=== PATIENT | female | born 1945 | race Caucasian/White ===

== ENCOUNTER 2017-12-18 13:27 | Emergency (ER) | payer MEDICARE ==
[~2017-12-18] VITALS: Ht 165.1 cm; Wt 72.6 kg
[2017-12-18 14:48] VITALS: BP 147/90
== END 2017-12-18 14:42 | disposition home or self-care (01) ==
LOC: ER 13:27
DX: T63.441A Toxic effect of venom of bees, accidental (unintentional), initial encounter (principal); E78.5 Hyperlipidemia, unspecified
CPT/HCPCS: 99282

== ENCOUNTER 2019-12-18 14:18 | Emergency (ER) | payer MEDICARE ==
[~2019-12-18] VITALS: Ht 165.1 cm; Wt 72.6 kg
--- OUTSIDE RECORDS SUMMARY | 2019-12-18 14:21 | XMS REPORT ---
Author Author [facility] t Organization [facility] Address [address] [place] [address] Phone Unavailable Care Team Providers Care Wood Floor Layer Name Role Phone NO, PCP PCP Unavailable Harry Sanchez Attphys Bharathi Cheung Attphys Bharathi Cheung Admphys Payers Payer Name Policy Type Policy Number Effective Date Expiration Date Gerald gilman Kelsey Care Medicare Advantage [id number] [facility] Problems Condition Name Condition Details Condition Category Status Onset Date Resolution Date Last Treatment Date Treating Clinician Comments Source WEAKNESS WEAK NESS Active 12/23/2017 [facility] Diagnosis Active 2017-12-23 00:00:00 2017-12-23 14:53:00 [facility] ANEMIA REQUIRING TRANSFUSION A NEMIA REQUIRING TRANSFUSION Active 04/10/2014 [facility] Diagnosis Active 04-10 00:00:00 2014-04-13 11:18:00 [facility] ABNORMAL LABS ABNO RMAL LABS Active 04/10/2014 [facility] Diagnosis Active 2014-04-10 00:00:00 2014-04-10 11:50:00 [facility] Hypertensive disorder, systemic arterial (disorder) Hypertensive disorder, systemic arterial (disorder) Active Problem 12/26/2017 patient states she does not have high blood pressure. [facility] Problem Active 2017-12-26 02:51:57 [facility] Malignant neoplasm of skin (disorder) Malignant neoplasm of skin (disorder) Resolved Problem 12/26/2017 [facility] Problem Resolved 2017-12-26 02:51:57 [facility] ANEMIA NOS ANEM IA NOS Active [facility] Diagnosis Active 2014-04-13 11:18:00 [facility] Urinary tract infection, site not specified Urinary tract infection, site not specified 12/23/2017 12/26/2017 [facility] Problem 2017-12-23 05:00:00 2017-12-26 02:51:57 2017-12-26 02:51:57 [facility] Orthostatic hypotension Orth ostatic hypotension 12/23/2017 12/26/2017 [facility] Problem 2017-12-23 05:00:00 2017 02:51:57 2017-12-26 02:51:57 [facility] Allergies, Adverse Reactions, Alerts Allergy Name Allergy Type Status Severity Reaction(s) Onset Date Inacti ve Date Treating Clinician Comments Source [facility] Augmentin Augmentin Active Benjamin rial [facility] Social History Smoking Status Start Date Stop Date Source Social History [facility] Medications Ordered Medication Name Filled Medication Name Start Date Stop Da te Current Medication? Ordering Clinician Indication Dosage Frequency Signature (SIG) Comments Components Source ciprofloxacin 500 mg oral tablet 2017-12-24 01:02:00 Yes 500 mg = 1 tab, PO, Q12H, X 7 day, # 14 tab, 0 Refill(s) [facility] Ciprofloxacin 2017-12-23 22:30:00 No 400 mg, Route: IVPB, ONCE, Dosing Weight 75, kg, Priority: STAT, Start date: 12/23/17 17:30:00 CDT, Stop date: 12/23/17 17:30:00 CDT, ABX Indication: Urinary Tract Infection [facility] Sodium Chloride 0.9% (Bolus) IV 2017-12-23 22:24:00 No 1,000 mL, 1,000 ml/hr, Infuse Over: 1 hr, Route: IV, 1,000, Drug form: INJ, ONCE, Priority: STAT, Dosing Weight 75 kg, Start date: 12/23/17 17:24:00 CDT, Stop date: 12/23/17 17:24:00 CDT [facility] Sodium Chloride 0.9% (Bolus) IV 2017-12-23 21:23:00 No 500 mL, 500 ml/hr, Infuse Over: 1 hr, Route: IV, ONCE, Priority: STAT, Dosing Weight 75 kg, Start date: 12/23/17 16:23:00 CDT, Stop date: 12/23/17 16:23:00 CDT [facility] pantoprazole 2014-04-12 22:00:00 No Notes: Tablet should not be chewed or crushed. (Same as: Protonix) [facility] Sucralfate 100 MG/ML Oral Suspension [Carafate] 2014-04-12 21:30 :00 No Notes: Enteral feeds may int erfere with the absorption of this medication. Shake well. Take 1 hr before or 2 hrs after antacids, dairy pdt, minerals & meals. (Same As: Carafate) [facility] Folic Acid 1 MG Oral Tablet 2014-04-12 21:20:00 Yes 1 mg = 1 tab, PO, Daily, # 30 tab, 0 Refill(s) [facility] ascorbic acid 500 mg oral tablet 2014-04-12 21:20:00 Yes 500 mg = 1 tab, PO, Daily, # 30 tab, 0 Refill(s) [facility] ferrous sulfate 325 mg oral enteric coated tablet 2014-04-12 21:20:00 Yes 325 mg = 1 tab, PO, BID, # 60 tab, 0 Refill(s) [facility] pyridoxine 100 mg oral tablet 2014-04-12 21:20:00 Yes 100 mg = 1 tab, PO, Daily, # 100 tab, 0 Refill(s) [facility] pantoprazole 40 mg oral granule 2014-04-12 18:24:00 Yes = 1 Pack, PO, BID, # 60 ea, 3 Refill(s) [facility] Sucralfate 100 MG/ML Oral Suspension 2014-04-12 18:24:00 Ye s 1 gm = 10 ml, PO, Before Meals & Bedtime, # 1200 mL, 0 Refill(s) [facility] Flumazenil 2014-04-12 18:23:00 No Notes: (S alexandr as: Romazicon) [facility] Naloxone 2014-04-12 18:23:00 No Notes: Same as Narcan [facility] Sodium Chloride 0.154 MEQ/ML Injectable Solution 2014-04-12 17:3 7:00 No 1,000 mL, Rate: 25 ml/hr, In fuse over: 40 hr, Route: IV, Dosing Weight 75 kg, Total Volume: 1,000, Start date: 04/12/14 12:37:00, Duration: 30 day, Stop date: 05/12/14 12:36:00 [facility] Vitamin C 2014-04-12 14:00:00 No Notes: (Sa me as: Vitamin C) [facility] Vitamin B12 2014-04-12 14:00:00 No Notes: (Same As: Vitamin B12) [facility] Riboflavin 2014-04-12 14:00:00 No Notes: (S alexandr as: Vitamin B2) [facility] Folic Acid 2014-04-12 14:00:00 No Notes: (S alexandr as: Folvite) [facility] Vitamin B6 2014-04-12 14:00:00 No Notes: (S alexandr as: Vitamin B6) [facility] Prinivil 2014-04-12 14:00:00 No Not es: (Same as: Prinivil, Zestril) [facility] Hydrochlorothiazide 12.5 MG / Lisinopril 10 MG Oral Tablet 2014-04-12 14:00:00 No 1 tab, Rou te: PO, Drug Form: TAB, Dosing Weight 75, kg, Daily, Start date: 04/12/14 9:00:00, Duration: 30 day, Stop date: 05/11/14 9:00:00 [facility] Venofer 2014-04-12 14:00:00 No Notes: Each 5ml contains 100mg elemental iron. Mix with NS (Same as:Venofer) Administer IV only. [facility] Microzide 2014-04-12 14:00:00 No Notes: (Same as: Microzide) With food. [facility] Bisacodyl 2014-04-12 00:02:00 No Notes: (Same As: Dulcolax, Correctol) (Do Not Crush) "Do Not Crush" [facility] Golytely 2014-04-12 00:01:00 No Notes: (polyethylene glycol electrolyte solution 4 Liter bottle) (Same as: Melecio Fernando) [facility] Sodium Chloride 0.154 MEQ/ML Injectable Solution 2014-04-11 14:1 6:00 No 1,000 mL, Rate: 100 ml/hr, I nfuse over: 10 hr, Route: IV, Dosing Weight 75 kg, Total Volume: 1,000, Start date: 04/11/14 9:16:00, Duration: 30 day, Stop date: 05/11/14 9:15:00 [facility] Influenza Virus Vaccine, Inactivated A-B ibksant-37-5574 (H3N2)-like virus (Z-Gdzsvfq-212-2007 [facility] [place] [place] X-175C) strain / Influenza Virus Vaccine, Inactivated G-Tqiezzto-12-2007, IVR-148 (H1N1) strain / Influenza Virus Vaccine, Inactivated, W-Lgaptth-4-2006-lik 2014-04-11 14:00:00 No Notes: (Same as: Fluzone Quadrivalent) [facility] NS 250 mL 2014-04-11 01:42:00 No 250 mL, Rate: 30 ml/hr, Infuse over: 8.3 hr, Route: IV, Dosing Weight 75 kg, Total Volume: 250, Start date: 04/10/14 20:42:00, Duration: 30 day, Stop date: 05/10/14 20:41:00 [facility] Hydrochlorothiazide 12.5 MG / Lisinopril 10 MG Oral Tablet 2014-04-10 21:28:00 Yes 1 tab, PO, Daily, # 30 tab, 0 R efill(s) [facility] lisinopril 10 mg oral tablet 2014-04-10 20:10:00 No 10 mg = 1 tab, PO, Daily, # 30 tab, 0 Refill(s) [facility] Vital Signs Vital Name Observation Time Observation Value Comments Source Heart Rate 2017-12-24 00:57:00 [facility] Respitory Rate 2017-12-24 00:57:00 [facility] Temperature Oral (F) 2017-12-24 00:57:00 98.0 F [facility] Systolic (mm Hg) 2017-12-24 00:57:00 [facility] Diastolic (mm Hg) 2017-12-24 00:57:00 [facility] Respitory Rate 2017-12-23 22:50:00 [facility] Heart Rate 2017-12-23 22:50:00 [facility] Systolic (mm Hg) 2017-12-23 22:50:00 [facility] Diastolic (mm Hg) 2017-12-23 22:50:00 [facility] Temperature Oral (F) 2017-12-23 19:21:00 98.0 F [facility] Heart Rate 2017-12-23 19:21:00 [facility] Respitory Rate 2017-12-23 19:21:00 [facility] Systolic (mm Hg) 2017-12-23 19:21:00 [facility] Diastolic (mm Hg) 2017-12-23 19:21:00 [facility] Diastolic (mm Hg) 2014-04-12 21:30:00 [facility] Systolic (mm Hg) 2014-04-12 21:30:00 [facility] Heart Rate 2014-04-12 21:30:00 [facility] Respitory Rate 2014-04-12 21:30:00 [facility] Systolic (mm Hg) 2014-04-12 19:00:00 [facility] Diastolic (mm Hg) 2014-04-12 19:00:00 [facility] Respitory Rate 2014-04-12 19:00:00 [facility] Diastolic (mm Hg) 2014-04-12 18:45:00 [facility] Systolic (mm Hg) 2014-04-12 18:45:00 [facility] Respitory Rate 2014-04-12 18:45:00 [facility] Temperature Oral (F) 2014-04-12 17:29:00 97.9 F [facility] Heart Rate 2014-04-12 17:29:00 [facility] Temperature Oral (F) 2014-04-12 16:59:00 98.4 F [facility] Heart Rate 2014-04-12 16:59:00 [facility] Temperature Oral (F) 2014-04-12 12:14:00 98.2 F [facility] Weight 2014-04-10 20:46:00 [facility] Height 2014-04-10 20:46:00 162.56 cm [facility] BMI Calculated 2014-04-10 20:46:00 [facility] Weight 2014-04-10 16:09:00 [facility] BMI Calculated 2014-04-10 16:09:00 [facility] Height 2014-04-10 16:09:00 162.56 cm [facility] Procedures Procedure Date / Time Performed Performing Clinician Sourc e Hysterectomy [facility] ORIF - Open reduction and internal fixation of fracture [facility] Tonsillectomy [facility] Encounters Start Date/Time End Date/Time Encounter Type Admission Type [facility] Facility Care Department Encounter ID Source 2017-12-23 19:15:00 2017-12-24 01:20:00 Emergency [facility] [id number] [facility] 2017-12-23 14:15:00 2017-12-23 20:20:00 Outpatient Michael Giang [facility] [id number] 2017-12-18 13:27:00 2017-12-18 14:42:[address] [id number] 2014-04-10 16:09:00 2014-04-12 22:00:00 Inpatient RO[facility]Chay [facility] [id number] [facility] 2014-04-10 11:09:00 2014-04-12 17:00:00 Outpatient Steven Cheung [facility] [id number] Results Test Description Test Time Test Comments Results Result Comments Source URINE AND STOOL 2017-12-23 21:50:00 6 [facility] URINE AND STOOL 2017-12-23 21:50:00 >182 [facility] URINE AND STOOL 2017-12-23 21:50:00 9 [facility] URINE AND STOOL 2017-12-23 21:50:00 Negative (12/23/17 4:50 PM) [facility] URINE AND STOOL 2017-12-23 21:50:00 Large *ABN*(12/23/17 4:5 0 PM) [facility] URINE AND STOOL 2017-12-23 21:50:00 Negative (12/23/17 4:50 PM) [facility] URINE AND STOOL 2017-12-23 21:50:00 Negative *NA*(12/23/17 4 :50 PM) [facility] URINE AND STOOL 2017-12-23 21:50:00 Test Item UA pH (test code = UA pH) 5.0 1 5.0-8.0 [facility] AND [id number] 21:50:00* Test Item Value Reference Range Interpretation Comments UA Spec Grav (test code = UA Spec Grav) 1.015 1 [facility] DITWQ3212-14-29 21:50:00Yellow *NA*(12/23/17 4:50 PM)[facility] RQBCB7024-14-48 21:50:00Marked *ABN*(12/23/17 4:50 PM) [facility] DACVGGR8576-86-73 21:00:0019 [facility] ENZYMES 2017-12-23 20:51:00<1.0MH [facility] SXIJGZS5997-15-60 20:51:00<0.02MH [facility] BVXJQJP6537-20-53 20:51:0033MH [facility] ENZYMES 2017-12-23 20:51:00<3.0MH [facility] OJFYZ1430-68-68 20:51:0052MH [facility] CHEM RJROA3845-78-98 20:51:00* Test Item Value Reference Range Interpretation Comments A/G Ratio (test code = A/G Ratio) 0.6 1 0.7-1.6 [facility] NLJXP2155-97-88 20:51:00* Test Item Value Reference Range Interpretation Comments B/C Ratio (test code = B/C Ratio) 15 1 6-25 [facility] GBOAJ2004-67-58 20:51:0016MH [facility] ZVYKU6769-77-22 20:51:83988DK [facility] RNMFN0359-03-57 20:51:004.8 [facility] PANEL 2017-12-23 20:51:0025MH [facility] MACTO0777-42-10 20:51:0038MH [facility] WFNRO7798-90-38 20:51:14341MW [facility] ELSQB3302-26-90 20:51:001.08 [facility] FVNEV6137-44-41 20:51:007.9 [facility] PRSHH8261-56-36 20:51:008.9 [facility] DBXMN4013-24-27 20:51:003.6[facility] PANEL 2017-12-23 20:51:0026MH [facility] ZBYGQ7497-43-36 20:51:0099MH [facility] KUYMM3658-14-37 20:51:003.1MH [facility] ACORT6308-98-28 20:51:0015.6MH [facility] UJMDJ8340-01-10 20:51:000.4MH [facility] ZISOD3166-45-26 20:51:0090 TdkyomcbvKLQREMHYDF6255-88-10 20:51:00* Test Item Value Reference Range Interpretation Comments MCH (test code = MCH) 26.3 pg 27.0-31.0 ErpldwdsnGDFQUXYNVW0672-64-27 20:51:007.8 BzanxoaobUXRGOEMKBA8473-80-57 20:51:88090WA TseboesjnNJPCHXIGZM3657-50-08 20:51:0019.9 [facility] 2017-12-23 20:51:0033.3M PbzokefybORSINUMXKG0612-13-42 20:51:0010.[facility] LFDJDUPFCP5438-29-14 20:51:0078.9 NmabgrzvfXDSYHUUKEN6030-94-18 20:51:0012.0 PqehzwklfSVGWSDIYAZ7808-89-43 20:51:004.59 RtbpqqcooONBTYRMHNX1527-98-66 20:51:0036.2M EzzqoyjryKLWCYOHYNW8557-76-85 20:51:00* Test Item Value Reference Range Interpretation Comments PTT (test code = PTT) 24.5 s 22.9-35.8 RfsumlvkcRTPVDLVYVM4801-81-76 20:51:00* Test Item Value Reference Range Interpretation Comments PT (test code = PT) 13.3 s 12.0-14.7 RjezpgqwfLKTYJYMPKI2302-58-28 20:51:00* Test Item Value Reference Range Interpretation Comments INR (test code = INR) 1.01 1 0.85-1.17 FutwbsxsaEHLRKJCOGH2268-89-71 20:51:000.1M EqxafomroGUQNPXIQST6443-67-46 20:51:001.2M UwihtdxbqVNJBXMQSTR7477-91-02 20:51:000.1M [facility] 2017-12-23 20:51:001+ *ABN*(12/23/17 3:51 PM) VxambsyhrHCHZRMZFQB5774-52-68 20:51:001.5 QjlyrykqeXWYJSTMEDZ5096-85-05 20:51:0072.5 [facility] 2017-12-23 20:51:0011.6M FuxmaxiiaCVIFXYQYRD6116-07-64 20:51:0014.[facility] WSUWRDVQSA2404-84-48 20:51:007.5 PxkrzhrkuJRDPFIPDOL4302-86-05 20:51:000.5 QyeteqgrnUBBLLTUZUY9379-53-06 20:51:000.8 [facility] HTJQG9186-78-40 09:33:003.2M [facility] MHBLD5934-92-99 09:33:0016 [facility] PANEL 2014-04-12 09:33:0077 [facility] TZNWZ8503-62-52 09:33:001.1M [facility] VHSEL2765-53-71 09:33:009.7 [facility] QGTFY5961-39-47 09:33:000.6MH [facility] OUYXO3964-00-83 09:33:008.3MH [facility] RWKBQ5028-66-35 09:33:0023MH [facility] GXZYT9671-00-85 09:33:45493XB [facility] PANEL 2014-04-12 09:33:003.4MH [facility] HWCUR1075-68-53 09:33:006.6MH [facility] VOEFQ6891-19-01 09:33:003.7 [facility] GDZZA7588-88-37 09:33:0054MH [facility] DXJQA1754-54-57 09:33:0012 [facility] HSHJE1797-10-00 09:33:0013 [facility] LRPQC7531-59-46 09:33:0082 [facility] PANEL 2014-04-12 09:33:85078NU [facility] ELCKT4307-73-93 09:33:000.8 [facility] LMPNA8641-48-69 09:33:0013 PzcdijnwdRAFXEHKSPX9176-88-59 09:33:0049.7 ZhcvcxfaoLFJFWBHFCB5610-03-69 09:33:001.5 KkiuexwilBYRHZITIZQ8464-92-00 09:33:0037.2MH MyxqhkqzjZEERNGLBZK1781-32-69 09:33:0010.6M [facility] 2014-04-12 09:33:002.6M FkiaroefsTUEUUWMTDE5396-55-24 09:33:000.7 [facility] ERLCGSILFE3821-95-41 09:33:001.0 RilewacpqROYDAONUVP0662-44-10 09:33:003.5 PsekuqaysNOUDMJZGLU9011-92-39 09:33:000.1MH YhovbtetyKQKEGSZHRE7319-10-88 09:33:003+ *NA*(04/12/14 4:33 AM) TawntcqakQMRLICDOKI2519-89-64 09:33:000.1M FlsiwimewOIDRVXWSNU0957-82-19 09:33:008.8 IuuzpqtumBMPPBUJUMT7052-29-63 09:33:0032.5 BjxkqnwtoPWUAYCAHHI5999-82-74 09:33:0030.8 [facility] 2014-04-12 09:33:35077OM EunfvimfpHBMDJJLZHU0819-09-52 09:33:0063.8 [facility] JEWSMDHALB1212-84-39 09:33:00* Test Item Value Reference Range Interpretation Comments MCH (test code = MCH) 19.6 pg 27.0-31.0 ZwekdlqxnRHJHEQBPRS8299-28-47 09:33:007.0 KndqvlamhUQDQOJVJHV7158-41-49 09:33:004.62 ZcmtrlnchZGJOKWGAOZ3251-39-58 09:33:009.1MH [facility] 2014-04-12 09:33:0029.5MH SoutheastTUMOR YDHNHYE0886-21-00 09:33:001.0 ByuxjotdoKUACWMRITX2169-27-76 21:15:008.8 [facility]ANEMIA VVBWN8383-44-67 16:22:0018.6MH [facility] AQTXU5575-74-80 16:22:54320DG [facility] GCJME1157-09-18 16:22:0014 [facility] ITBVV4604-66-44 16:22:003MH [facility] ROTOB9794-82-12 16:22:80255GY [facility] YLFJV1647-76-48 16:22:003MH [facility] QXMNT3629-43-73 16:22:49480ID [facility] 2014-04-11 16:22:001.0 QjrwcokynIMVPBJIQCU1297-14-81 16:22:008.7 [facility] AN[facility]IA YFNLB4962-06-22 09:56:003MH [facility]AN[facility] OPRQF8420-11-44 09:56:0014MH [facility]AN[facility] JNIAG2522-89-02 09:56:61041XJ [facility]AN[facility] UQZHS8799-30-50 09:56:08859UP [facility] IUGRJ4343-05-58 09:56:0059 [facility] PANEL 2014-04-11 09:56:0025MH [facility] NRCMZ6599-55-09 09:56:52602BH [facility] NTCJH0177-42-61 09:56:008.8 [facility] ZOFZW6750-84-24 09:56:004.2MH [facility] WETST8486-30-54 09:56:0011MH [facility] YNKHX2552-25-13 09:56:0087 [facility] KDNDB3964-37-51 09:56:23044WY [facility] PANEL 2014-04-11 09:56:001.0 [facility] BAMBJ6628-31-15 09:56:0011.2MH [facility] WLCGLLIEMK0832-28-49 09:56:0028.0 WitzqkmjdZUUUFLZFIX7496-81-98 09:56:0062.7 TraotgsnrSWLHMKDRFO8557-38-59 09:56:00* Test Item Value Reference Range Interpretation Comments MCH (test code = MCH) 19.6 pg 27.0-31.0 GzxunphhoKGYQUPZMUU2149-69-07 09:56:004.46 RgkvfklazOWKSLMSZNL7043-77-80 09:56:005.8 EasnrgqdrERDXTJZRJM3083-35-80 09:56:008.7 [facility] 2014-04-11 09:56:40952WH NmehmzotcCOCJVDFDDO5131-15-41 09:56:0032.1MH [facility] GFWRJYSVWC4656-83-73 09:56:0031.2MH [facility] AND ZVGNY4605-86-98 17:15:00 Negative (04/10/14 12:15 PM)[facility] SRTOBUV3996[facility]-79 17:08:00 Product available 1(04/10/14 12:08 PM) [facility] GVBCTQS1902-11-68 16:30:00Negative (04/10/14 11:30 AM) [facility] XQXZY1274-30-25 16:30:0052 [facility] WSHZA9358-08-62 16:30:0060 [facility] AHTNB3243-09-15 16:30:000.3MH [facility] WRYKY5501-88-41 16:30:007MH [facility] PANEL 2014-04-10 16:30:008.6MH [facility] FQJNP4185-66-58 16:30:0023 [facility] OUCDI5771-77-42 16:30:83119LB [facility] QEWQJ9930-52-61 16:30:003.7 [facility] EKKDA9073-93-58 16:30:006.9 [facility] FWTQN8272-50-46 16:30:0013 [facility] JQRFF0029-73-09 16:30:003.5 [facility] PANEL 2014-04-10 16:30:46810WB [facility] KSRHF9106-14-43 16:30:001.1M [facility] FTVPV8864-43-10 16:30:44192[facility] BQVVO8861-20-57 16:30:0013[facility] RKOOR3534-56-76 16:30:001.2[facility] AWRHB2362-48-33 16:30:0012[facility] XNWJK2894-44-42 16:30:003.2M [facility] PANEL 2014-04-10 16:30:0012.5 MikjacvmeDUZTRSUXXL6084-63-89 16:30:00* Test Item Value Reference Range Interpretation Comments PTT (test code = PTT) 26.7 s 22.9-35.8 IkjrdslkvRLQAGTVUVY7180-15-23 16:30:001.05[facility]ZeasiykffIIXZRGLHRQ0181-87-59 16:30:00* Test Item Value Reference Range Interpretation Comments PT (test code = PT) 13.7 s 12.0-14.7 BquwixoulJRJKCWPGFB5224-48-69 16:30:0054.5 KanuhnmcrDBTZBMSBPN0085-95-80 16:30:00* Test Item Value Reference Range Interpretation Comments MCH (test code = MCH) 15.5 pg 27.0-31.0 XbjghgtbiUKODWQBXFN2945-00-52 16:30:0021.3M MhuyzrpqdSWVKXGLCHW5963-08-23 16:30:[address] [place], [place] [address]FckprtlxfUFWDLGPTTA5521-33-07 16:30:008.8 [facility] 2014-04-10 16:30:0020.3M UcghqjvwmFSYSYWVUAL5349-72-63 16:30:47319RN[facility] WIBHUOBERR6381-79-65 16:30:003.91[facility]EmhwhxwwuXDRSYOIZTV0601-01-54 16:30:004.4 AodyegqqlNGVUOMHNUV3146-88-95 16:30:001.5 WuiycoofrSWIFJULRHA1143-59-57 16:30:003+ *NA*(04/10/14 11:30 AM)[facility]PkqaxrcskDUWNMVGIJT5171-03-98 16:30:000.1M VzlporssgYAVVTJEXDX3856-16-00 16:30:001.5 WbephqeyrDXGKJKCERQ8476-22-32 16:30:000.[facility] YxbfdyxvzGVLOYQLMTJ9714-85-67 16:30:000.5[facility] 2014-04-10 16:30:002.3[facility] HospitalGqqjvzfnhNNJBWSACUY7795-44-51 16:30:001.8[facility] VEYWVZFJWI1328-51-26 16:30:[address] [place], [place] [address]IfevhpjarWGIITPKVCT2016-06-18 16:30:0052.5[facility] HospitalJiswaujteYLWFNLRLVX8847-96-90 16:30:00See Note (04/10/14 11:30 AM)[facility] [place] [id number] 16:30:0033.9[facility] HospitalFmjubkalzZGBEZVRBVO7620-37-38 16:30:002+ (04/10/14 11:30 AM)[facility]YbyrebyfzTJOJUOKITN3077-60-21 16:30:001+ *ABN*(04/10/14 11:30 AM)[facility] [place]
--- OUTSIDE RECORDS SUMMARY | 2019-12-18 14:21 | XMS REPORT | Summary of Care ---
Author Author [facility] Organization [facility] Address Unknown Phone Unavailable Encounter HQ Shruthi(FIN) [phone] Date(s): 12/23/17 - 12/23/17 [facility] [address] [place] [address]- Encounter Diagnosis Acute UTI (Discharge Diagnosis) - 12/23/17 Orthostasis (Discharge Diagnosis) - 12/23/17 Discharge Disposition: Home or Self Care Attending Physician: Michael Sanchez MD Vital Signs 1 2 3 Most recent to oldest [Reference Range]: 98.0 DegF (12/23/17 7:57 PM) 98.0 DegF (12/23/17 2:21 PM) Temperature Oral [96.4-99.1 DegF] 156/73 mmHg *HI* (12/23/17 7:57 PM) 148/60 mmHg *HI* (12/23/17 5:50 PM) 130/82 mmHg (12/23/17 2:21 PM) Blood Pressure [90-140/60-90 mmHg] 17 BRMIN (12/23/17 7:57 PM) 17 BRMIN (12/23/17 5:50 PM) 16 BRMIN (12/23/17 2:21 PM) Respiratory Rate [14-20 BRMIN] 71 bpm (12/23/17 7:57 PM) 68 bpm (12/23/17 5:50 PM) 84 bpm (12/23/17 2:21 PM) Peripheral Pulse Rate [60-100 bpm] Problem List Condition Effective Dates Status Health Status Informan t Hypertension(Confirm Active ed)1 Skin Resolved cancer(Confirmed) 1patient states she does not have high blood pressure. Allergies, Adverse Reactions, Alerts Substance Reaction Severity Status morphine Active Augmentin Active Medications ciprofloxacin 400 mg, Route: IVPB, ONCE, Dosing Weight 75, kg, Priority: STAT, Start date: 11/06 17:30:00 CDT, Stop date: 12/23/17 17:30:00 CDT, ABX Indication: Urinary Tr act Infection Start Date: 12/23/17 Stop Date: 12/23/17 Status: Completed ciprofloxacin 500 mg oral tablet 500 mg = 1 tab, PO, Q12H, X 7 day, # 14 tab, 0 Refill(s) Start Date: 12/23/17 Stop Date: 12/30/17 Status: Ordered Sodium Chloride 0.9% (Bolus) IV 1,000 mL, 1,000 ml/hr, Infuse Over: 1 hr, Route: IV, 1,000, Drug form: INJ, ONCE , Priority: STAT, Dosing Weight 75 kg, Start date: 12/23/17 17:24:00 CDT, Stop d ate: 12/23/17 17:24:00 CDT Start Date: 12/23/17 Stop Date: 12/23/17 Status: Completed Sodium Chloride 0.9% (Bolus) IV 500 mL, 500 ml/hr, Infuse Over: 1 hr, Route: IV, ONCE, Priority: STAT, Dosing We ight 75 kg, Start date: 12/23/17 16:23:00 CDT, Stop date: 12/23/17 16:23:00 CDT Start Date: 12/23/17 Stop Date: 12/23/17 Status: Completed Results ELECTROLYTES Most recent to 1 oldest [Reference Range]: Sodium Lvl [135-145 137 mEq/L mEq/L] (12/23/17 3:51 PM) Potassium Lvl 3.6 mEq/L [3.5-5.1 mEq/L] (12/23/17 3:51 PM) Chloride Lvl [95-109 99 mEq/L mEq/L] (12/23/17 3:51 PM) CO2 [24-32 mEq/L] 26 mEq/L (12/23/17 3:51 PM) AGAP [10.0-20.0 15.6 mEq/L mEq/L] (12/23/17 3:51 PM) CHEM PANEL Most recent to 1 oldest [Reference Range]: Creatinine Lvl 1.08 mg/dL [0.50-1.40 mg/dL] (12/23/17 3:51 PM) eGFR 52 mL/min/1.73m2 1 *NA* (12/23/17 3:51 PM) BUN [7-22 mg/dL] 16 mg/dL (12/23/17 3:51 PM) B/C Ratio [6-25] 15 (12/23/17 3:51 PM) Glucose Lvl [70-99 113 mg/dL mg/dL] *HI* (12/23/17 3:51 PM) Total Protein 7.9 g/dL [6.4-8.4 g/dL] (12/23/17 3:51 PM) Albumin Lvl [3.5-5.0 3.1 g/dL g/dL] *LOW* (12/23/17 3:51 PM) Globulin [2.7-4.2 4.8 g/dL g/dL] *HI* (12/23/17 3:51 PM) A/G Ratio [0.7-1.6] 0.6 *LOW* (12/23/17 3:51 PM) Calcium Lvl 8.9 mg/dL [8.5-10.5 mg/dL] (12/23/17 3:51 PM) ALT [0-65 unit/L] 38 unit/L (12/23/17 3:51 PM) AST [0-37 unit/L] 25 unit/L (12/23/17 3:51 PM) Alk Phos [39-136 90 unit/L unit/L] (12/23/17 3:51 PM) Bili Total [0.2-1.3 0.4 mg/dL mg/dL] (12/23/17 3:51 PM) 1Result Comment: The eGFR is calculated using the CKD-EPI formula. In most young, healthy individuals the eGFR will be >90 mL/min/1.73m2. The eGFR declines with age. An eGFR of 60-89 may be normal in some populations, particularly the elderly, for whom the CKD-EPI formula has not been extensively validated. Use of the eGFR is not recommended in the following populations: Individuals with unstable creatinine concentrations, including patients and those with serious co-morbid conditions. Patients with extremes in muscle mass or diet. The data above are obtained from the National Kid[employer] Disease Education Program ( NKDEP) which additionally recommends that when the eGFR is used in patients with extremes of body mass index for purposes of drug dosing, the eGFR should be mul tiplied by the estimated BMI. CARDIAC ENZYMES Most recent to 1 oldest [Reference Range]: Total CK [12-191 33 unit/L unit/L] (12/23/17 3:51 PM) CK MB [0.5-3.6 <1.0 ng/mL ng/mL] (12/23/17 3:51 PM) CK MB Index <3.0 [0.0-2.5] *HI* (12/23/17 3:51 PM) Troponin-I <0.02 ng/mL [0.00-0.40 ng/mL] (12/23/17 3:51 PM) BNP [<=100 pg/mL] 19 pg/mL (12/23/17 4:00 PM) URINE AND STOOL Most recent to 1 oldest [Reference Range]: UA Turbidity [Clear] Marked *ABN* (12/23/17 4:50 PM) UA Color [Yellow] Yellow *NA* (12/23/17 4:50 PM) UA pH [5.0-8.0] 5.0 (12/23/17 4:50 PM) UA Spec Grav 1.015 [<=1.030] (12/23/17 4:50 PM) UA Glucose [Negative Negative mg/dL mg/dL] *NA* (12/23/17 4:50 PM) UA Blood [Negative] Negative (12/23/17 4:50 PM) UA Ketones [Negative Negative mg/dL mg/dL] *NA* (12/23/17 4:50 PM) UA Protein [Negative 100 mg/dL mg/dL] *ABN* (12/23/17 4:50 PM) UA Urobilinogen <=1.0 mg/dL [0.1-1.0 mg/dL] *NA* (12/23/17 4:50 PM) UA Bili [Negative] Negative *NA* (12/23/17 4:50 PM) UA Leuk Est Large [Negative] *ABN* (12/23/17 4:50 PM) UA Nitrite Negative [Negative] (12/23/17 4:50 PM) UA WBC [0-5 /HPF] >182 /HPF *HI* (12/23/17 4:50 PM) UA RBC [0-2 /HPF] 9 /HPF *HI* (12/23/17 4:50 PM) UA Bacteria [None Occasional /HPF Seen /HPF] *NA* (12/23/17 4:50 PM) UA Sq Epi [Few /LPF] Moderate /LPF *ABN* (12/23/17 4:50 PM) UA Hyal Cast [0-2 6 /LPF /LPF] *HI* (12/23/17 4:50 PM) UA Mucus [None Seen Few /LPF /LPF] *NA* (12/23/17 4:50 PM) HEMATOLOGY Most recent to 1 oldest [Reference Range]: WBC [3.7-10.4 K/CMM] 10.3 K/CMM (12/23/17 3:51 PM) RBC [4.20-5.40 4.59 M/CMM M/CMM] (12/23/17 3:51 PM) Hgb [12.0-16.0 g/dL] 12.0 g/dL (12/23/17 3:51 PM) Hct [36.0-48.0 %] 36.2 % (12/23/17 3:51 PM) MCV [80.0-98.0 fL] 78.9 fL *LOW* (12/23/17 3:51 PM) MCH [27.0-31.0 pg] 26.3 pg *LOW* (12/23/17 3:51 PM) MCHC [32.0-36.0 33.3 g/dL g/dL] (12/23/17 3:51 PM) RDW [11.5-14.5 %] 19.9 % *HI* (12/23/17 3:51 PM) MPV [7.4-10.4 fL] 7.8 fL (12/23/17 3:51 PM) Platelet [133-450 298 K/CMM K/CMM] (12/23/17 3:51 PM) Segs [45.0-75.0 %] 72.5 % (12/23/17 3:51 PM) Lymphocytes 14.6 % [20.0-40.0 %] *LOW* (12/23/17 3:51 PM) Monocytes [2.0-12.0 11.6 % %] (12/23/17 3:51 PM) Eosinophils [0.0-4.0 0.8 % %] (12/23/17 3:51 PM) Basophils [0.0-1.0 0.5 % %] (12/23/17 3:51 PM) Segs-Bands # 7.5 K/CMM [1.5-8.1 K/CMM] (12/23/17 3:51 PM) Lymphocytes # 1.5 K/CMM [1.0-5.5 K/CMM] (12/23/17 3:51 PM) Monocytes # [0.0-0.8 1.2 K/CMM K/CMM] *HI* (12/23/17 3:51 PM) Eosinophils # 0.1 K/CMM [0.0-0.5 K/CMM] (12/23/17 3:51 PM) Basophils # [0.0-0.2 0.1 K/CMM K/CMM] (12/23/17 3:51 PM) Microcyte [None 1+ Seen] *ABN* (12/23/17 3:51 PM) PT [12.0-14.7 13.3 seconds seconds] (12/23/17 3:51 PM) INR [0.85-1.17] 1.01 (12/23/17 3:51 PM) PTT [22.9-35.8 24.5 seconds seconds] (12/23/17 3:51 PM) Immunizations Given and Recorded Vaccine Date Status Refusal Reason influenza virus vaccine, inactivated 04/11/14 G iven pneumococcal 13-valent vaccine1 08/31/11 Given 1Admin Note: patient notify that "she received pn vaccine at 2011". Procedures Procedure Date Related Diagnosis Body Site Status Hysterectomy Completed ORIF - Open reduction and internal fixation Compl eted of fracture Tonsillectomy Completed Social History Social History Type Response Smoking Status Never smoker; Exposure to T obacco Smoke None; Cigarette Smoking Last 365 Days No; Reg Smoking Cessation Counseli ng No entered on: 12/23/17 Assessment and Plan No data available for this section
--- OUTSIDE RECORDS SUMMARY | 2019-12-18 14:21 | XMS REPORT | Continuity of Care Document ---
Author Author Jud [employer] Address Unknown Phone Unavailable Care Team Providers Care Communications Officer Name Role Phone [employer] Information Exchange Unavailable Un available Problems Problem Status Onset Date Classification Date Reported Comments Source Urinary tract infection, site not specified 12/23/2017 12/26/2017 [facility] Orthostatic hypotension 12/23/2017 12/26/2017 [facility] WEAKNESS Active 12/23/2017 [facility] ANEMIA REQUIRING TRANSFUSION A ctive 04/10/2014 [facility] ABNORMAL LABS Active 04/10/2014 [facility] Hypertensive disorder, systemic arterial (disorder) Active Problem 12/26/2017 patient states she does not have high blood pressure. [facility] Malignant neoplasm of skin (disorder) Resolved Problem 12/26/2017 [facility] ANEMIA NOS Active [facility] Medications Medication Details Route Status Patient Instructions Ordering Provider Order Date Source ciprofloxacin 500 mg oral tablet 500 mg = 1 tab, PO, Q12H, X 7 day, # 14 tab, 0 Refill(s) Active 12/24/2017 [facility] Ciprofloxacin 400 mg, Route: I VPB, ONCE, Dosing Weight 75, kg, Priority: STAT, Start date: 12/23/17 17:30:00 CDT, Stop date: 12/23/17 17:30:00 CDT, ABX Indication: Urinary Tract Infection Inactive 12/23/2017 [facility] Sodium Chloride 0.9% (Bolus) IV 1,000 mL, 1,000 ml/hr, Infuse Over: 1 hr, Route: IV, 1,000, Drug form: INJ, ONCE, Priority: STAT, Dosing Weight 75 kg, Start date: 12/23/17 17:24:00 CDT, Stop date: 12/23/17 17:24:00 CDT Inactive 12/23/2017 [facility] Sodium Chloride 0.9% (Bolus) IV 500 mL, 500 ml/hr, Infuse Over: 1 hr, Route: IV, ONCE, Priority: STAT, Dosing Weight 75 kg, Start date: 12/23/17 16:23:00 CDT, Stop date: 12/23/17 16:23:00 CDT Inactive 12/23/2017 [facility] pantoprazole Notes: Tablet joel uld not be chewed or crushed. (Same as: Protonix) Inactive 04/12/2014 [facility] Sucralfate 100 MG/ML Oral Suspension [Carafate] Notes: Enteral feeds may interfere with the absorption of this medication. Shake well. Take 1 hr before or 2 hrs after antacids, dairy pdt, minerals & meals. (Same As: Carafate) Inactive 04/12/2014 [facility] Folic Acid 1 MG Oral Tablet 1 mg = 1 tab, PO, Daily, # 30 tab, 0 Refill(s) Active 04/12/2014 [facility] ascorbic acid 500 mg oral tablet 500 mg = 1 tab, PO, Daily, # 30 tab, 0 Refill(s) Active 04/12/2014 [facility] ferrous sulfate 325 mg oral enteric coated tablet 325 mg = 1 tab, PO, BID, # 60 tab, 0 Refill(s) Active 04/12/2014 [facility] pyridoxine 100 mg oral tablet 100 mg = 1 tab, PO, Daily, # 100 tab, 0 Refill(s) Active 04/12/2014 [facility] pantoprazole 40 mg oral granule = 1 Pack, PO, BID, # 60 ea, 3 Refill(s) Active 04/12/2014 [facility] Sucralfate 100 MG/ML Oral Suspension 1 gm = 10 ml, PO, Before Meals & Bedtime, # 1200 mL, 0 Refill(s) Active 04/12/2014 [facility] Flumazenil Notes: (Same as: Ro mazicon) Inactive 04/12/2014 [facility] Naloxone Notes: Same as Narcan Inactive 04/12/2014 [facility] Sodium Chloride 0.154 MEQ/ML Injectable Solution 1,000 mL, Rate: 25 ml/hr, Infuse over: 40 hr, Route: IV, Dosing Weight 75 kg, Total Volume: 1,000, Start date: 04/12/14 12:37:00, Duration: 30 day, Stop date: 05/12/14 12:36:00 Inactive 04/12/2014 [facility] Vitamin C Notes: (Same as: Vit mooney C) Inactive 04/12/2014 [facility] Vitamin B12 Notes: (Same As: V itamin B12) Inactive 04/12/2014 [facility] Riboflavin Notes: (Same as: Vi tamin B2) Inactive 04/12/2014 [facility] Folic Acid Notes: (Same as: Fo lvite) Inactive 04/12/2014 [facility] Vitamin B6 Notes: (Same as: Vi tamin B6) Inactive 04/12/2014 [facility] Prinivil Notes: (Same as: Prin ivil, Zestril) Inactive 04/12/2014 [facility] Hydrochlorothiazide 12.5 MG / Lisinopril 10 MG Oral Tablet 1 tab, Route: PO, Drug Form: TAB, Dosing Weight 75, kg, Daily, Start date: 04/12/14 9:00:00, Duration: 30 day, Stop date: 05/11/14 9:00:00 No Longer Active 04/12/2014 [facility] Venofer Notes: Each 5ml contai ns 100mg elemental iron. Mix with NS (Same as:Venofer) Administer IV only. Inactive 04/12/2014 [facility] Microzide Notes: (Same as: Ronaldo rozide) With food. Inactive 04/12/2014 [facility] Bisacodyl Notes: (Same As: Dul colax, Correctol) (Do Not Crush) "Do Not Crush" No Longer Active 04/12/2014 [facility] Golytely Notes: (polyethylene glycol electrolyte solution 4 Liter bottle) (Same as: Golytely, Colyte) Inactive 04/12/2014 [facility] Sodium Chloride 0.154 MEQ/ML Injectable Solution 1,000 mL, Rate: 100 ml/hr, Infuse over: 10 hr, Route: IV, Dosing Weight 75 kg, Total Volume: 1,000, Start date: 04/11/14 9:16:00, Duration: 30 day, Stop date: 05/11/14 9:15:00 No Longer Active 04/11/2014 [facility] Influenza Virus Vaccine, Inactivated A-B [id number] (H3N2)-like virus ([id number] [facility] X-175C) strain / Influenza Virus Vaccine, Inactivated B-[id number], IVR-148 (H1N1) strain / Influenza Virus Vaccine, Inactivated, L-Qolsqdv-4-lik Notes: (Same as: Fluzone Quadrivalent) Inactive 04/11/2014 [facility] NS 250 mL 250 mL, Rate: 30 ml/ hr, Infuse over: 8.3 hr, Route: IV, Dosing Weight 75 kg, Total Volume: 250, Start date: 04/10/14 20:42:00, Duration: 30 day, Stop date: 05/10/14 20:41:00 No Longer Active 04/11/2014 [facility] Hydrochlorothiazide 12.5 MG / Lisinopril 10 MG Oral Tablet 1 tab, PO, Daily, # 30 tab, 0 Refill(s) Active 04/10/2014 [facility] lisinopril 10 mg oral tablet 1 0 mg = 1 tab, PO, Daily, # 30 tab, 0 Refill(s) Inactive 04/10/2014 [facility] Allergies, Adverse Reactions, Alerts Substance Category Reaction Severity Reaction type Status Date Reported Comments Source morphine Assertion Drug allergy Active [facility] Augmentin Assertion Drug allergy Active [facility] Immunizations Immunization Date Given Site Status Last Updated Comments Source influenza virus vaccine, inactivated 04/11/2014 Abdomen, lower quadrant, lt co mpleted [facility] pneumococcal 13-valent vaccine<sup>1</sup> 08/31/2011 completed [facility] Admin Note: patient noti fy that "she received pn vaccine at 2011". [facility] Results Order Name Results Value Reference Range Date Interpretation Comments Source URINE AND STOOL UA Urobilinogen <=1.0 mg/dL 0.1 - 1.0 12/23/2017 [facility] URINE AND STOOL UA Hyal Cast 6 0 - 2 12/23/2017 [facility] URINE AND STOOL UA Mucus Few /LPF None Seen /LPF 12/23/2017 [facility] URINE AND STOOL UA Bacteria Occasional /HPF None Seen /HPF 12/23/2017 [facility] URINE AND STOOL UA WBC >182 0 - 5 12/23/2017 [facility] URINE AND STOOL UA RBC 9 0 - 2 12/23/2017 [facility] URINE AND STOOL UA Nitrite Negative (12/23/17 4:50 PM) Negative 12/23/2017 [facility] URINE AND STOOL UA Sq Epi Moderate /LPF Few /LPF 12/23/2017 [facility] URINE AND STOOL UA Leuk Est Large *ABN* (12/23/17 4:50 PM) Negative 12/23/2017 [facility] URINE AND STOOL UA Ketones Negative mg/dL Negative mg/dL 12/23/2017 [facility] URINE AND STOOL UA Blood Negative (12/23/17 4:50 PM) Negative 12/23/2017 [facility] URINE AND STOOL UA Bili Negative *NA* (12/23/17 4:50 PM) Negative 12/23/2017 [facility] URINE AND STOOL UA Glucose Negative mg/dL Negative mg/dL 12/23/2017 [facility] URINE AND STOOL UA Protein 100 mg/dL Negative mg/dL 12/23/2017 [facility] URINE AND STOOL UA pH 5.0 5.0 - 8.0 12/23/2017 [facility] URINE AND STOOL UA Spec Grav 1.015 <=1.030 12/23/2017 [facility] URINE AND STOOL UA Color Yellow *NA* (12/23/17 4:50 PM) Yellow 12/23/2017 [facility] URINE AND STOOL UA Turbidity Marked *ABN* (12/23/17 4:50 PM) Clear 12/23/2017 [facility] CARDIAC ENZYMES BNP 19 <=100 pg/mL 12/23/2017 [facility] CARDIAC ENZYMES CK MB <1.0 0.5 - 3.6 12/23/2017 [facility] CARDIAC ENZYMES Troponin-I <0.02 0.00 - 0.40 12/23/2017 [facility] CARDIAC ENZYMES Total CK 33 12 - 191 12/23/2017 [facility] CARDIAC ENZYMES CK MB Index <3.0 0.0 - 2.5 12/23/2017 [facility] CHEM PANEL eGFR 52 12/23/2017 Result Comment: The eGFR is calculated using the [...] from the National Kidney Disease Education Program (NKDEP) which additionally recommends that when the eGFR is used in patients with extremes of body mass index for purposes of drug dosing, the eGFR should be multiplied by the estimated BMI. [facility] CHEM PANEL A/G Ratio 0.6 0.7 - 1.6 12/23/2017 [facility] CHEM PANEL B/C Ratio 15 6 - 25 12/23/2017 [facility] CHEM PANEL BUN 16 7 - 22 12/23/2017 [facility] CHEM PANEL Glucose Lvl 113 70 - 99 12/23/2017 [facility] CHEM PANEL Globulin 4.8 2.7 - 4.2 12/23/2017 [facility] CHEM PANEL AST 25 0 - 37 12/23/2017 [facility] CHEM PANEL ALT 38 0 - 65 12/23/2017 [facility] CHEM PANEL Sodium Lvl 137 135 - 145 12/23/2017 [facility] CHEM PANEL Creatinine Lvl 1.08 0.50 - 1.40 12/23/2017 [facility] CHEM PANEL Total Protein 7.9 6.4 - 8.4 12/23/2017 [facility] CHEM PANEL Calcium Lvl 8.9 8.5 - 10.5 12/23/2017 [facility] CHEM PANEL Potassium Lvl 3.6 3.5 - 5.1 12/23/2017 [facility] CHEM PANEL CO2 26 24 - 32 12/23/2017 [facility] CHEM PANEL Chloride Lvl 99 95 - 109 12/23/2017 [facility] CHEM PANEL Albumin Lvl 3.1 3.5 - 5.0 12/23/2017 [facility] CHEM PANEL AGAP 15.6 10.0 - 20.0 12/23/2017 [facility] CHEM PANEL Bili Total 0.4 0.2 - 1.3 12/23/2017 [facility] CHEM PANEL Alk Phos 90 39 - 136 12/23/2017 [facility] HEMATOLOGY MCH 26.3 27.0 - 31.0 12/23/2017 [facility] HEMATOLOGY MPV 7.8 7.4 - 10.4 12/23/2017 [facility] HEMATOLOGY Platelet 298 133 - 450 12/23/2017 [facility] HEMATOLOGY RDW 19.9 11.5 - 14.5 12/23/2017 [facility] HEMATOLOGY MCHC 33.3 32.0 - 36.0 12/23/2017 [facility] HEMATOLOGY WBC 10.3 3.7 - 10.4 12/23/2017 [facility] HEMATOLOGY MCV 78.9 80.0 - 98.0 12/23/2017 [facility] HEMATOLOGY Hgb 12.0 12.0 - 16.0 12/23/2017 [facility] HEMATOLOGY RBC 4.59 4.20 - 5.40 12/23/2017 [facility] HEMATOLOGY Hct 36.2 36.0 - 48.0 12/23/2017 [facility] HEMATOLOGY PTT 24.5 22.9 - 35.8 12/23/2017 [facility] HEMATOLOGY PT 13.3 12.0 - 14.7 12/23/2017 [facility] HEMATOLOGY INR 1.01 0.85 - 1.17 12/23/2017 [facility] [place] Basophils # 0.1 0.0 - 0.2 12/23/2017 [facility] HEMATOLOGY Monocytes # 1.2 0.0 - 0.8 12/23/2017 [facility] [place] Eosinophils # 0.1 0.0 - 0.5 12/23/2017 [facility] [place] Microcyte 1+ *ABN* (12/23/17 3:51 PM) None Seen 12/23/2017 [facility] [place] Lymphocytes # 1.5 1.0 - 5.5 12/23/2017 [facility] [place] Segs 72.5 45.0 - 75.0 12/23/2017 [facility] [place] Monocytes 11.6 2.0 - 12.0 12/23/2017 [facility] [place] Lymphocytes 14.6 20.0 - 40.0 12/23/2017 [facility] [place] Segs-Bands # 7.5 1.5 - 8.1 12/23/2017 [facility] [place] Basophils 0.5 0.0 - 1.0 12/23/2017 [facility] [place] Eosinophils 0.8 0.0 - 4.0 12/23/2017 [facility] CHEM PANEL Globulin 3.2 2.0 - 4.0 04/12/2014 [facility] CHEM PANEL B/C Ratio 16 6 - 25 04/12/2014 [facility] CHEM PANEL eGFR 77 04/12/2014 <sup>2</sup>Result Comment: The eGFR is calculated using the CKD-EPI formula. In most young, healthy individuals the eGFR will be >90 mL/min/1.73m2. The eGFR declines with age. An eGFR of 60-89 may be normal in some populations, particularly the elderly, for whom the CKD-EPI formula has not been extensively validated. Use of the eGFR is not recommended in the following populations:& lt;br/>
Individuals with unstable creatinine concentrations, including patients and those with serious co-morbid conditions.

Patients with extremes in muscle mass or diet.

The data above are obtained from the National Kidney Disease Education Program (NKDEP) which additionally recommends that when the eGFR is used in patients with extremes of body mass index for purposes of drug dosing, the eGFR should be multiplied by the estimated BMI. [facility] CHEM PANEL A/G Ratio 1.1 0.7 - 1.6 04/12/2014 [facility] CHEM PANEL AGAP 9.7 10.0 - 20.0 04/12/2014 [facility] CHEM PANEL Bili Total 0.6 0.2 - 1.3 04/12/2014 [facility] CHEM PANEL Calcium Lvl 8.3 8.5 - 10.5 04/12/2014 [facility] CHEM PANEL CO2 23 24 - 32 04/12/2014 [facility] CHEM PANEL Chloride Lvl 110 95 - 109 04/12/2014 [facility] CHEM PANEL Albumin Lvl 3.4 3.5 - 5.0 04/12/2014 [facility] CHEM PANEL Total Protein 6.6 6.4 - 8.4 04/12/2014 [facility] CHEM PANEL Potassium Lvl 3.7 3.5 - 5.1 04/12/2014 [facility] CHEM PANEL Alk Phos 54 39 - 136 04/12/2014 [facility] CHEM PANEL AST 12 0 - 37 04/12/2014 [facility] CHEM PANEL ALT 13 0 - 65 04/12/2014 [facility] CHEM PANEL Glucose Lvl 82 70 - 99 04/12/2014 <sup>5</sup>Interpretive Data: Adult ref erence range values reflect the clinical guidelines
of the [place] [employer]. [facility] CHEM PANEL Sodium Lvl 139 135 - 145 04/12/2014 [facility] CHEM PANEL Creatinine Lvl 0.8 0.5 - 1.4 04/12/2014 [facility] CHEM PANEL BUN 13 7 - 22 04/12/2014 [facility] HEMATOLOGY Segs 49.7 45.0 - 75.0 04/12/2014 [facility] HEMATOLOGY Eosinophils 1.5 0.0 - 4.0 04/12/2014 [facility] HEMATOLOGY Lymphocytes 37.2 20.0 - 40.0 04/12/2014 [facility] HEMATOLOGY Monocytes 10.6 2.0 - 12.0 04/12/2014 [facility] HEMATOLOGY Lymphocytes # 2.6 1.0 - 5.5 04/12/2014 [facility] HEMATOLOGY Monocytes # 0.7 0.0 - 0.8 04/12/2014 [facility] HEMATOLOGY Basophils 1.0 0.0 - 1.0 04/12/2014 [facility] HEMATOLOGY Segs-Bands # 3.5 1.5 - 8.1 04/12/2014 [facility] HEMATOLOGY Eosinophils # 0.1 0.0 - 0.5 04/12/2014 [facility] HEMATOLOGY Microcyte 3+ *NA* (04/12/14 4:33 AM) None Seen 04/12/2014 [facility] HEMATOLOGY Basophils # 0.1 0.0 - 0.2 04/12/2014 [facility] HEMATOLOGY MPV 8.8 7.4 - 10.4 04/12/2014 [facility] HEMATOLOGY RDW 32.5 11.5 - 14.5 04/12/2014 [facility] HEMATOLOGY MCHC 30.8 32.0 - 36.0 04/12/2014 [facility] HEMATOLOGY Platelet 326 133 - 450 04/12/2014 [facility] HEMATOLOGY MCV 63.8 80.0 - 98.0 04/12/2014 [facility] [place] MCH 19.6 27.0 - 31.0 04/12/2014 [facility] HEMATOLOGY WBC 7.0 3.7 - 10.4 04/12/2014 [facility] HEMATOLOGY RBC 4.62 4.20 - 5.40 04/12/2014 [facility] [place] Hgb 9.1 12.0 - 16.0 04/12/2014 [facility] [place] Hct 29.5 36.0 - 48.0 04/12/2014 [facility] TUMOR MARKERS CEA 1.0 0.0 - 3.0 04/12/2014 [facility] [place] Hgb 8.8 12.0 - 16.0 04/11/2014 [facility] ANEMIA STUDY Folate Lvl 18.6 >=3.0 ng/mL 04/11/2014 [facility] ANEMIA STUDY UIBC 442 110 - 370 04/11/2014 [facility] ANEMIA STUDY Iron 14 30 - 160 04/11/2014 [facility] ANEMIA STUDY % Satur Fe 3 12 - 57 04/11/2014 [facility] ANEMIA STUDY TIBC 456 228 - 428 04/11/2014 [facility] ANEMIA STUDY Ferritin Lvl 3 5 - 204 04/11/2014 [facility] ANEMIA STUDY Vitamin B12 Lvl 583 254 - 1320 04/11/2014 [facility] HEMATOLOGY Retic Auto 1.0 0.5 - 1.5 04/11/2014 [facility] HEMATOLOGY Hgb 8.7 12.0 - 16.0 04/11/2014 [facility] ANEMIA STUDY % Satur Fe 3 12 - 57 04/11/2014 [facility] ANEMIA STUDY Iron 14 30 - 160 04/11/2014 [facility] ANEMIA STUDY TIBC 427 228 - 428 04/11/2014 [facility] ANEMIA STUDY UIBC 413 110 - 370 04/11/2014 [facility] CHEM PANEL eGFR 59 04/11/2014 <sup>3</sup>Result Comment: The eGFR is calculated using the CKD-EPI formula. In most young, healthy individuals the eGFR will be >90 mL/min/1.73m2. The eGFR declines with age. An eGFR of 60-89 may be normal in some populations, particularly the elderly, for whom the CKD-EPI formula has not been extensively validated. Use of the eGFR is not recommended in the following populations:& lt;br/>
Individuals with unstable creatinine concentrations, including patients and those with serious co-morbid conditions.

Patients with extremes in muscle mass or diet.

The data above are obtained from the National Kidney Disease Education Program (NKDEP) which additionally recommends that when the eGFR is used in patients with extremes of body mass index for purposes of drug dosing, the eGFR should be multiplied by the estimated BMI. [facility] CHEM PANEL CO2 25 24 - 32 04/11/2014 [facility] CHEM PANEL Chloride Lvl 107 95 - 109 04/11/2014 [facility] CHEM PANEL Calcium Lvl 8.8 8.5 - 10.5 04/11/2014 [facility] CHEM PANEL Potassium Lvl 4.2 3.5 - 5.1 04/11/2014 [facility] CHEM PANEL BUN 11 7 - 22 04/11/2014 [facility] CHEM PANEL Glucose Lvl 87 70 - 99 04/11/2014 <sup>6</sup>Interpretive Data: Adult ref erence range values reflect the clinical guidelines
of the [place] [employer]. [facility] CHEM PANEL Sodium Lvl 139 135 - 145 04/11/2014 [facility] CHEM PANEL Creatinine Lvl 1.0 0.5 - 1.4 04/11/2014 [facility] CHEM PANEL AGAP 11.2 10.0 - 20.0 04/11/2014 [facility] HEMATOLOGY Hct 28.0 36.0 - 48.0 04/11/2014 [facility] HEMATOLOGY MCV 62.7 80.0 - 98.0 04/11/2014 [facility] HEMATOLOGY MCH 19.6 27.0 - 31.0 04/11/2014 [facility] HEMATOLOGY RBC 4.46 4.20 - 5.40 04/11/2014 [facility] HEMATOLOGY WBC 5.8 3.7 - 10.4 04/11/2014 [facility] HEMATOLOGY MPV 8.7 7.4 - 10.4 04/11/2014 [facility] HEMATOLOGY Platelet 318 133 - 450 04/11/2014 [facility] HEMATOLOGY RDW 32.1 11.5 - 14.5 04/11/2014 [facility] [place] MCHC 31.2 32.0 - 36.0 04/11/2014 [facility] URINE AND STOOL Occult Bld Stl Negative (04/10/14 12:15 PM) Negative 04/10/2014 [facility] BLOOD BANK RESULTS RBC product Product available 1 (04/10/14 12:08 PM) 04/10/2014 <sup>1</sup>Result Comment: 04/10/2014 13:09 [id number]
Notified to Kristin on 04/10/2014 13:09 by Giancarlo. [facility] BLOOD BANK RESULTS Antibody Scrn Negative (04/10/14 11:30 AM) 04/10/2014 [facility] RES[facility] ABO/Rh B POS 04/10/2014 [facility] CHEM PANEL eGFR 52 04/10/2014 <sup>4</sup>Result Comment: The eGFR is calculated using the CKD-EPI formula. In most young, healthy individuals the eGFR will be >90 mL/min/1.73m2. The eGFR declines with age. An eGFR of 60-89 may be normal in some populations, particularly the elderly, for whom the CKD-EPI formula has not been extensively validated. Use of the eGFR is not recommended in the following populations:& lt;br/>
Individuals with unstable creatinine concentrations, including patients and those with serious co-morbid conditions.

Patients with extremes in muscle mass or diet.

The data above are obtained from the National Kidney Disease Education Program (NKDEP) which additionally recommends that when the eGFR is used in patients with extremes of body mass index for purposes of drug dosing, the eGFR should be multiplied by the estimated BMI. [facility] CHEM PANEL Alk Phos 60 39 - 136 04/10/2014 [facility] CHEM PANEL Bili Total 0.3 0.2 - 1.3 04/10/2014 [facility] CHEM PANEL AST 7 0 - 37 04/10/2014 [facility] CHEM PANEL Calcium Lvl 8.6 8.5 - 10.5 04/10/2014 [facility] CHEM PANEL CO2 23 24 - 32 04/10/2014 [facility] CHEM PANEL Chloride Lvl 106 95 - 109 04/10/2014 [facility] CHEM PANEL Albumin Lvl 3.7 3.5 - 5.0 04/10/2014 [facility] CHEM PANEL Total Protein 6.9 6.4 - 8.4 04/10/2014 [facility] CHEM PANEL BUN 13 7 - 22 04/10/2014 [facility] CHEM PANEL Potassium Lvl 3.5 3.5 - 5.1 04/10/2014 [facility] CHEM PANEL Sodium Lvl 138 135 - 145 04/10/2014 [facility] CHEM PANEL Creatinine Lvl 1.1 0.5 - 1.4 04/10/2014 [facility] CHEM PANEL Glucose Lvl 123 70 - 99 04/10/2014 <sup>7</sup>Interpretive Data: Adult ref erence range values reflect the clinical guidelines
of the [place] [employer]. [facility] CHEM PANEL ALT 13 0 - 65 04/10/2014 [facility] CHEM PANEL A/G Ratio 1.2 0.7 - 1.6 04/10/2014 [facility] CHEM PANEL B/C Ratio 12 6 - 25 04/10/2014 [facility] CHEM PANEL Globulin 3.2 2.0 - 4.0 04/10/2014 [facility] CHEM PANEL AGAP 12.5 10.0 - 20.0 04/10/2014 [facility] HEMATOLOGY PTT 26.7 22.9 - 35.8 04/10/2014 <sup>9</sup>Interpretive Data: Heparin T herapeutic Range: 57 - 92 Seconds [facility] HEMATOLOGY INR 1.05 0.85 - 1.17 04/10/2014 <sup>8</sup>Interpretive Data: RECOMMEND ED RANGES FOR PROTIME INR:
2.0-3.0 for most medical and surgical thromboembolic states.
2.5-3.5 for artificial heart valves and recurrent embolism.

INR SHOULD BE USED ONLY FOR PATIENTS ON STABLE ANTICOAGULANT THERAPY. [facility] HEMATOLOGY PT 13.7 12.0 - 14.7 04/10/2014 [facility] HEMATOLOGY MCV 54.5 80.0 - 98.0 04/10/2014 [facility] HEMATOLOGY MCH 15.5 27.0 - 31.0 04/10/2014 [facility] [place] Hct 21.3 36.0 - 48.0 04/10/2014 [facility] [place] MCHC 28.4 32.0 - 36.0 04/10/2014 [facility] [place] MPV 8.8 7.4 - 10.4 04/10/2014 [facility] [place] RDW 20.3 11.5 - 14.5 04/10/2014 [facility] [place] Platelet 369 133 - 450 04/10/2014 [facility] [place] RBC 3.91 4.20 - 5.40 04/10/2014 [facility] HEMATOLOGY WBC 4.4 3.7 - 10.4 04/10/2014 [facility] HEMATOLOGY Basophils 1.5 0.0 - 1.0 04/10/2014 [facility] [place] Microcyte 3+ *NA* (04/10/14 11:30 AM) None Seen 04/10/2014 [facility] [place] Basophils # 0.1 0.0 - 0.2 04/10/2014 [facility] [place] Segs-Bands # 1.5 1.5 - 8.1 04/10/2014 [facility] [place] Eosinophils # 0.1 0.0 - 0.5 04/10/2014 [facility] [place] Monocytes # 0.5 0.0 - 0.8 04/10/2014 [facility] [place] Lymphocytes # 2.3 1.0 - 5.5 04/10/2014 [facility] [place] Eosinophils 1.8 0.0 - 4.0 04/10/2014 [facility] [place] Monocytes 10.3 2.0 - 12.0 04/10/2014 [facility] [place] Lymphocytes 52.5 20.0 - 40.0 04/10/2014 [facility] [place] RBC Morph See N ote (04/10/14 11:30 AM) 04/10/2014 [facility] [place] Segs 33.9 45.0 - 75.0 04/10/2014 [facility] [place] Hypochrom 2+ (04/10/14 11:30 AM) None Seen 04/10/2014 [facility] [place] Anisocyte 1+ *ABN* (04/10/14 11:30 AM) None Seen 04/10/2014 [facility] Pathology Reports No Data Provided for This Section Diagnostic Reports Report Value Date Source Chest 1view DX Clinical Indica tion: - weakness, near syncope Comparison: None FINDINGS: The frontal chest radiograph shows normal lung volumes without interstitial or airspace opacities, pleural effusions or pneumothorax. The cardiomediastinal contours are normal. The trachea is midline. There are no clinically significant osseous abnormalities noted. Large hiatal hernia is present. IMPRESSION: No chest radiographic evidence of acute cardiopulmonary disease. SL: [id number] 12/23/2017 [facility] Brain wo contrast CT CRANIAL C T (without contrast) HISTORY: Syncope. TECHNIQUE: Helical CT images were obtained from the foramen magnum to the vertex without the use of intravenous contrast. There are no prior studies available for comparison. FINDINGS: There is mild prominence of the ventricles and sulci consistent with mild, age- appropriate atrophy. There is otherwise normal appearance of the ventricular system and extraventricular CSF spaces. There is no evidence of mass, midline shift, hemorrhage, extra-axial fluid collection, acute infarction, or other focal abnormal attenuation within the brain parenchyma. The calvarium is intact. The visualized sinuses and mastoids are clear. CONCLUSION: 1. No acute or focal intracranial proces s. 2. Mild, age-appropriate atrophy. Coding: Brain wo contrast CT CPT Code: 60030 SL: 16 Oscar Corbin M.D. 04/12/2014 [facility] Consultation Notes No Data Provided for This Section Discharge Summaries No Data Provided for This Section History and Physicals No Data Provided for This Section Vital Signs Vital Sign Value Date Comments Source Heart Rate 71 12/24/2017 [facility] Respitory Rate 17 12/24/2017 [facility] Temperature Oral (F) 98.0 F 12/24/2017 [facility] Systolic (mm Hg) 156 12/24/2017 [facility] Diastolic (mm Hg) 73 12/24/2017 [facility] Respitory Rate 17 12/23/2017 [facility] Heart Rate 68 12/23/2017 [facility] Systolic (mm Hg) 148 12/23/2017 [facility] Diastolic (mm Hg) 60 12/23/2017 [facility] Temperature Oral (F) 98.0 F 12/23/2017 [facility] Heart Rate 84 12/23/2017 [facility] Respitory Rate 16 12/23/2017 [facility] Systolic (mm Hg) 130 12/23/2017 [facility] Diastolic (mm Hg) 82 12/23/2017 [facility] Diastolic (mm Hg) 74 04/12/2014 [facility] Systolic (mm Hg) 125 04/12/2014 [facility] Heart Rate 71 04/12/2014 [facility] Respitory Rate 16 04/12/2014 [facility] Systolic (mm Hg) 129 04/12/2014 [facility] Diastolic (mm Hg) 62 04/12/2014 [facility] Respitory Rate 15 04/12/2014 [facility] Diastolic (mm Hg) 54 04/12/2014 [facility] Systolic (mm Hg) 124 04/12/2014 [facility] Respitory Rate 15 04/12/2014 [facility] Temperature Oral (F) 97.9 F 04/12/2014 [facility] Heart Rate 88 04/12/2014 [facility] Temperature Oral (F) 98.4 F 04/12/2014 [facility] Heart Rate 68 04/12/2014 [facility] Temperature Oral (F) 98.2 F 04/12/2014 [facility] Weight 75 0 04/10/2014 [facility] Height 162.56 cm 04/10/2014 [facility] BMI Calculated 28.38 04/10/2014 [facility] Weight 72.727 04/10/2014 [facility] BMI Calculated 27.52 04/10/2014 [facility] Height 162.56 cm 04/10/2014 [facility] Encounters Location Location Details Encounter Type Encounter Number Reason For Visit Attending Provider ADM Date DC Date Status Source [facility] Inpatient [id number] Topher Ospinael 04/10/2014 04/12/2014 [facility] [id number] Michael Sanchez 12/23/2017 12/24/2017 [facility] Procedures Procedure Code Date Perfomer Comments Source Hysterectomy [id number] [facility] ORIF - Open reduction and internal fixation of fractur e [id number] [facility] Tonsillectomy [id number] [facility] Assessment and Plan Assessment and Plan Date Source Extracted from:Title: [id number] Author: Darshan Sánchez MD Date: 04/12/14 Impression and Plan Diagnosis: Anemia (ICD9 648.2, Working, Medical), Hypertension (ICD9 401.9, Working, Medical). 1. Iron Deficiency Anemia: She was given 2 units of transfusion and now hemoglobin is 9.1. Seen by GI and has colonoscopy and it was negative for any GI bleed. 2. Iron deficiency: No GI source was fou nd and Stool was negative for Hem. Ferritin is low and TIBC was high and she has no storage. Seen by Dr Cyr and recommended Iron infusion. 3. Hypertension: On medication and stabl e at this time. 04/12/2014 [facility] Plan of Care No Data Provided for This Section Social History Social History Date Source Social History TypeResponse Smoking Status Never smoker; Exposure to Tobacco Smoke None; Cigarette Smoking Last 365 Days No; Reg Smoking Cessation Counseling No entered on: 12/23/17 12/23/2017 [facility] Family History No Data Provided for This Section Advance Directives No Data Provided for This Section Functional Status No Data Provided for This Section
[2019-12-18] MEDS ORDERED: ASPIRIN 81 MG CHEW TAB PO ONE (14:30)
[2019-12-18] MEDS ORDERED: TRAMADOL HCL 50 MG TAB PO ONE (14:45)
--- NOTE | 2019-12-18 14:46 | Emergency Department Note ---
History of Present Illnes History of Present Illness Chief Complaint: Chest Pain History of Present Illness This is a 74 year old female .c/o r lateral rib cage ttp / pain HERE FOR RIGHT SIDED RIB PAIN, CLIENT IS TENDER ON PALPATION AND STATES IT HURTS HER TO BREATHE AND MOVE. DENIES SHORTNES OF BREATH. Historian: Patient Arrival Mode: Car Location: r lateral rib cage Quality: mild Radiation: non-radiation Severity: mild Onset quality: sudden Duration (how long): day(s) (last night) Timing of current episode: constant Progression: unchanged Context: recent illness, recent surgery, recent immobilization, recent travel, trauma/injury, new medications, hx of DVT/PE, non-compliance w/ medications, other Relieving factors: none Exacerbating factors: none Treatments prior to arrival: none (SANG LEWIS NP) Past Medical/Family History Physician Review I have reviewed the patient's past medical and family history. Any updates have been documented here. (SANG LEWIS NP) Past Medical History Recent Fever: No Clinical Suspicion of Infectio: No New/Unexplained Change in Ment: No Past Medical History: Hyperlipedemia (SANG LEWIS NP) Social History Smoking Cessation: Never Smoker Alcohol Use: None Any Illegal Drug Use: No TB Exposure/Symptoms: No Physically hurt or threatened: No (SANG LEWIS NP) Family History Family history of heart diseas: No (SANG LEWIS NP) Other Last Tetanus: UTD Any Pre-Existing Lines (PICC,: No (SANG LEWIS NP) Review of Systems Review of Systems Constitutional: no symptoms EENTM: no symptoms Cardiovascular: no symptoms Respiratory: no symptoms Gastrointestinal: no symptoms Genitourinary: no symptoms Musculoskeletal: other (r lateral rib cage pain) Neurological: no symptoms Psychological: no symptoms Endocrine: no symptoms Hematological/Lymphatic: no symptoms Review of other systems All other systems reviewed and negative. (SANG LEWIS NP) Physical Exam Related Data Allergies: Coded Allergies: No Known Allergies (Unverified , 12/18/19) Triage Vital Signs Vital Signs Date Time Temp Pulse Resp B/P (MAP) Pulse Ox O2 Delivery O2 Flow Rate FiO2 12/18/19 14:30 97.8 88 16 121/54 98 Vital signs reviewed: Yes (SANG LEWIS NP) Physical Exam CONSTITUTIONAL Constitutional: well-developed, well-nourished HENT HENT: normocephalic, atraumatic, oropharynx clear/moist, nose normal HENT L/R: left ext ear normal, right ext ear normal EYES Eyes: PERRL, conjunctivae normal NECK Neck: ROM normal PULMONARY Pulmonary: effort normal, breath sounds normal CARDIOVASCULAR Cardiovascular: regular rhythm, heart sounds normal, capillary refill normal, normal rate GASTROINTESTINAL Abdominal: soft, nontender, bowel sounds normal GENITOURINARY Genitourinary: exam deferred SKIN Skin: warm, dry MUSCULOSKELETAL Musculoskeletal: ROM normal, tenderness, other (c/o right lateral rib cage ttp no rash redness contusion brusing lesion noted - sts occured in bed while her and her were having relations ) NEUROLOGICAL Neurological: alert, oriented x 3, no gross motor or sensory deficits PSYCHOLOGICAL Psychological: mood/affect normal, judgement normal (SANG LEWIS NP) Results Imaging Impressions rib / cxr IMPRESSION: No acute traumatic injury to the thorax. Specifically, no displaced rib fractures. Clear lungs. Large hiatal hernia. Signed by: Alvin Lunsford MD on 12/18/2019 3:39 PM (SANG LEWIS NP) Procedures 12 Lead ECG Interpretation Storm Sash Maker: Interpreted by ED physician (bruno) Date: December 18, 2019 Time: 15:35 Prior MACHINIST LINOTYPE tracings: reviewed Rhythm: sinus rhythm Rate: normal BPM: 61 QRS axis: normal ST segments normal: Yes T waves normal: Yes Clinical Impression: normal ECG (SANG LEWIS NP) Critical Care Time Subsequent provider I assumed direction of critical care for this patient from another provider of my specialty. (SANG LEWIS NP) Assessment & Plan Reassessment Reassessment time: 14:44 Reassessment 74y f presented to ed c/o r lateral rib cage ttp -denies cp sob n/v/d potter dizzine ss - Dr Car in eval pt status - rad ordered pt medicated w/ lidocaine patch and ultram (SANG LEWIS NP) Assessment & Plan Final Impression: (1) CONTUSION OF UNSPECIFIED FRONT WALL OF THORAX, INIT ENCNTR Assessment & Plan discussed rad results plan of care and f/u instructions plan: 1. follow up with your doctor / orthopedic doctor in 1-2 days without fail 2. tylenol and motirn as needed 3. return to ed as needed 4. rx ultram lidocaine patch (SANG LEWIS NP) Depart Disposition: HOME, SELF-CARE Last Vital Signs Date Time Temp Pulse Resp B/P (MAP) Pulse Ox O2 Delivery O2 Flow Rate FiO2 12/18/19 14:30 97.8 88 16 121/54 98 (SANG LEWIS NP) Medications in the ED Aspirin 81 mg PRN ONCE PO ; Start 12/18/19 at 14:30; Stop 12/18/19 at 14:35; Status DC Lidocaine 1 ea DAILY ONCE TP ; Start 12/19/19 at 09:00; Stop 12/19/19 at 09:01 Tramadol HCl 100 mg ONCE ONCE PO ; Start 12/18/19 at 14:45; Stop 12/18/19 at 14:46 (SANG LEWIS NP) Physician Attestation Provider Attestation The patient's history, exam findings, diagnostics, and a summary of any interventions or procedures was reviewed in detail with our SUJATA. I personally interviewed and examined the patient, and I have reviewed and agree with the HPI andexam. My personal exam shows REPRODUCIBLE TENDERNESS RIGHT LATERAL CHEST WALL. I confirm the diagnosis as documented by the SUJATA. I have reviewed and agree with the care plan articulated in the disposition section. (FLORES CAR MD) SANG LEWIS NP December 18, 2019 14:46 FLORES CAR MD December 18, 2019 17:13
--- NOTE | 2019-12-18 15:42 | Diagnostic Imaging Report ---
EXAMINATION: RIBS UNILAT W/CXR INDICATION: Right rib pain, fall COMPARISON: None FINDINGS: LINES/TUBES:None LUNGS:The lungs are well-inflated. No focal consolidation or pulmonary edema. PLEURA:No pleural effusion or pneumothorax. MEDIASTINUM:The cardiomediastinal silhouette appears normal in size and shape. Atherosclerotic calcifications of the thoracic aorta. BONES/SOFT TISSUES:No acute osseous injury. ABDOMEN: Large hiatal hernia. No free air under the diaphragm. IMPRESSION: No acute traumatic injury to the thorax. Specifically, no displaced rib fractures. Clear lungs. Large hiatal hernia. Signed by: Alvin Lunsford MD on 12/18/2019 3:39 PM
[2019-12-18 16:29] VITALS: BP 130/80
[2019-12-19] MEDS ORDERED: LIDOCAINE 4% PATCH TP ONE (09:00)
== END 2019-12-18 16:37 | disposition home or self-care (01) ==
LOC: ER 14:18
DX: S20.211A Contusion of right front wall of thorax, initial encounter (principal); R07.89 Other chest pain; W50.0XXA Accidental hit or strike by another person, initial encounter; Y92.003 Bedroom of unspecified non-institutional (private) residence as the place of occurrence of the external cause; E78.5 Hyperlipidemia, unspecified
CPT/HCPCS: 71101; 93005; 99284

== ENCOUNTER 2020-02-08 09:50 | Emergency (ER) | payer MEDICARE ==
[~2020-02-08] VITALS: Ht 162.6 cm; Wt 77.1 kg
[2020-02-08] MEDS ORDERED: CEFTRIAXONE SOD 1 GM/NS 50 ML 50 ML IV ONE ×2 (10:00→10:19)
--- NOTE | 2020-02-08 10:10 | Emergency Department Note ---
History of Present Illnes History of Present Illness Chief Complaint: Genitourinary History of Present Illness This is a 74 year old female arrived to the ED with complaints of d ysuria, foul-smelling urine and back pain for 3 days . Patient denies any fever or chills, denies any nausea or vomiting. Historian: Patient Arrival Mode: Car Onset (how long ago): day(s) Radiation: Reports non-radiation, Reports back, Reports flank Severity: mild Onset quality: gradual Duration (how long): day(s) Timing of current episode: constant Progression: worsening Chronicity: recurrent Relieving factors: none Exacerbating factors: none Past Medical/Family History Physician Review I have reviewed the patient's past medical and family history. Any updates have been documented here. Past Medical History Recent Fever: No Clinical Suspicion of Infectio: No New/Unexplained Change in Ment: No Past Medical History: Hyperlipedemia Past Surgical History: Hysterectomy Social History Smoking Cessation: Never Smoker Counseling Performed: No Alcohol Use: Social Any Illegal Drug Use: No TB Exposure/Symptoms: No Physically hurt or threatened: No Other Last Tetanus: UTD Review of Systems Review of Systems Constitutional: Reports no symptoms EENTM: Reports no symptoms Cardiovascular: Reports no symptoms Respiratory: Reports no symptoms Gastrointestinal: Reports no symptoms Genitourinary: Reports as per HPI, Reports dysuria, Reports frequency, Reports hematuria, Reports pain Musculoskeletal: Reports no symptoms Integumentary: Reports no symptoms Neurological: Reports no symptoms Psychological: Reports no symptoms Endocrine: Reports no symptoms Hematological/Lymphatic: Reports no symptoms Physical Exam Related Data Allergies: Coded Allergies: No Known Allergies (Unverified , 12/18/19) Triage Vital Signs Vital Signs Date Time Temp Pulse Resp B/P (MAP) Pulse Ox O2 Delivery O2 Flow Rate FiO2 02/08/20 09:55 98.2 73 18 134/74 100 Room Air Vital signs reviewed: Yes Physical Exam CONSTITUTIONAL Constitutional: Present well-developed, Present well-nourished HENT HENT: Present normocephalic, Present atraumatic, Present oropharynx clear/moist, Present nose normal HENT L/R: Present left ext ear normal, Present right ext ear normal EYES Eyes: Reports PERRL, Reports conjunctivae normal NECK Neck: Present ROM normal PULMONARY Pulmonary: Present effort normal, Present breath sounds normal CARDIOVASCULAR Cardiovascular: Present regular rhythm, Present heart sounds normal, Present capillary refill normal, Present normal rate GASTROINTESTINAL Abdominal: Present soft, Present nontender, Present bowel sounds normal GENITOURINARY Genitourinary: Present exam deferred, Present other (no flank tenderness) SKIN Skin: Present warm, Present dry MUSCULOSKELETAL Musculoskeletal: Present ROM normal NEUROLOGICAL Neurological: Present alert, Present oriented x 3, Present no gross motor or sensory deficits PSYCHOLOGICAL Psychological: Present mood/affect normal, Present judgement normal Results Laboratory Lab results reviewed: Yes Laboratory comments Laboratory Tests Test 02/08/20 10:02 White Blood Count 7.40 x10e3/uL (4.8-10.8) Red Blood Count 4.86 x10e6/uL (3.6-5.1) Hemoglobin 14.1 g/dL (12.0-16.0) Hematocrit 43.7 % (34.2-44.1) Mean Corpuscular Volume 89.9 fL (81-99) Mean Corpuscular Hemoglobin 29.0 pg (28-32) Mean Corpuscular Hemoglobin Concent 32.3 g/dL (31-35) Red Cell Distribution Width 14.8 % (11.7-14.4) Platelet Count 267 x10e3/uL (140-360) Neutrophils (%) (Auto) 60.9 % (38.7-80.0) Lymphocytes (%) (Auto) 24.9 % (18.0-39.1) Monocytes (%) (Auto) 9.2 % (4.4-11.3) Eosinophils (%) (Auto) 3.9 % (0.0-6.0) Basophils (%) (Auto) 0.8 % (0.0-1.0) Neutrophils # (Auto) 4.5 (2.1-6.9) Lymphocytes # (Auto) 1.8 (1.0-3.2) Monocytes # (Auto) 0.7 (0.2-0.8) Eosinophils # (Auto) 0.3 (0.0-0.4) Basophils # (Auto) 0.1 (0.0-0.1) Absolute Immature Granulocyte (auto 0.02 x10e3/uL (0-0.1) Urine Color Yellow (YELLOW) Urine Clarity Sl cloudy (CLEAR) Urine pH 5.5 (5 - 7) Urine Specific Parnell 1.025 (1.010-1.025) Urine Protein Negative (NEGATIVE) Urine Glucose (UA) Negative (NEGATIVE) Urine Ketones 2+ (NEGATIVE) Urine Blood Trace (NEGATIVE) Urine Nitrite Negative (NEGATIVE) Urine Bilirubin Small (NEGATIVE) Urine Urobilinogen 0.2 mg/dL (0.2 - 1) Urine Leukocyte Esterase Large (NEGATIVE) Urine RBC 6-10 /HPF (0-5) Urine WBC 6-10 /HPF (0-5) Urine Epithelial Cells Few /LPF (NONE) Urine Bacteria Rare /HPF (NONE) Sodium Level 137 mmol/L (136-145) Potassium Level 4.0 mmol/L (3.5-5.1) Chloride Level 105 mmol/L (98-107) Carbon Dioxide Level 22 mmol/L (22-29) Anion Gap 14.0 mmol/L (8-16) Blood Urea Nitrogen 9 mg/dL (7-26) Creatinine 0.89 mg/dL (0.57-1.11) Estimat Glomerular Filtration Rate > 60 ML/MIN (60-) BUN/Creatinine Ratio 10 (6-25) Glucose Level 92 mg/dL (74-118) Calcium Level 9.5 mg/dL (8.4-10.2) Total Bilirubin 0.6 mg/dL (0.2-1.2) Aspartate Amino Transf (AST/SGOT) 17 IU/L (5-34) Alanine Aminotransferase (ALT/SGPT) 11 IU/L (0-55) Alkaline Phosphatase 81 IU/L (40-150) Total Protein 7.2 g/dL (6.5-8.1) Albumin 3.7 g/dL (3.5-5.0) Globulin 3.5 g/dL (2.3-3.5) Albumin/Globulin Ratio 1.1 (0.8-2.0) Assessment & Plan Medical Decision Making MDM 74-year-old well-appearing female arrived to the ED with complaints of dysuria, no flank pain, no concerns of acute pyelonephritis. Patient appears to have uncomplicated UTI. Urine culture sent and patient discharged home on Bactrim. Assessment & Plan Final Impression: (1) UTI (urinary tract infection) Depart Disposition: HOME, SELF-CARE Last Vital Signs Date Time Temp Pulse Resp B/P (MAP) Pulse Ox O2 Delivery O2 Flow Rate FiO2 02/08/20 09:55 98.2 73 18 134/74 100 Room Air Home Meds Active Scripts Sulfamethoxazole/Trimethoprim (BACTRIM DS TABLET) 1 Each Tablet, 1 TAB PO BID, #20 TAB 0 Refills Prov:SHIRA MARTINEZ DO 02/08/20 Medications in the ED Ceftriaxone Sodium 50 ml @ 100 mls/hr ONCE ONCE IV ; Start 02/08/20 at 10:00; Stop 02/08/20 at 10:29; Status UNV Phenazopyridine HCl 100 mg PC PO ; Start 02/08/20 at 13:00; Stop 03/09/20 at 12:59; Status UNV SHIRA MARTINEZ DO Feb 08, 2020 10:10
[2020-02-08 10:15] LABS: BASOPHILS # (AUTO) 0.1 (0.0-0.1); BASOPHILS % 0.8 % (0.0-1.0); EOSINOPHILS # (AUTO) 0.3 (0.0-0.4); EOSINOPHILS % 3.9 % (0.0-6.0); HEMATOCRIT 43.7 % (34.2-44.1); HEMOGLOBIN 14.1 g/dL (12.0-16.0); LYMPHOCYTES # (AUTO) 1.8 (1.0-3.2); LYMPHOCYTES % 24.9 % (18.0-39.1); MEAN CORPUSCULAR HGB CONC 32.3 g/dL (31-35); MEAN CORPUSCULAR VOLUME 89.9 fL (81-99); MONOCYTES # (AUTO) 0.7 (0.2-0.8); MONOCYTES % 9.2 % (4.4-11.3); NEUTROPHILS # (AUTO) 4.5 (2.1-6.9); NEUTROPHILS % 60.9 % (38.7-80.0); PLATELET COUNT 267 x10e3/uL (140-360); RED BLOOD COUNT 4.86 x10e6/uL (3.6-5.1); RED CELL DISTRIBUTION WIDTH 14.8 % (11.7-14.4)
[2020-02-08] MEDS ORDERED: BACTRIM DS TAB1 EACH PO (10:17)
[2020-02-08] MEDS ORDERED: PHENAZOPYRIDINE HCL 100 MG TAB ONE (10:19)
[2020-02-08 10:30] LABS: CLARITY,URINE SL CLOUDY (CLEAR); COLOR,URINE YELLOW (YELLOW); LEUKOCYTE ESTERASE ,URINE LARGE (NEGATIVE); NITRITE,URINE NEGATIVE (NEGATIVE); PROTEIN,URINE DIPSTICK NEGATIVE (NEGATIVE)
[2020-02-08 10:31] LABS: BILIRUBIN,URINE SMALL (NEGATIVE); KETONES,URINE 2+ (NEGATIVE); URINE UROBILINOGEN 0.2 mg/dL (0.2 - 1)
[2020-02-08 10:36] LABS: ALANINE AMINOTRANSFERASE 11 IU/L (0-55); ALBUMIN 3.7 g/dL (3.5-5.0); ALBUMIN/GLOBULIN RATIO 1.1 (0.8-2.0); ALKALINE PHOSPHATASE 81 IU/L (40-150); BLOOD UREA NITROGEN 9 mg/dL (7-26); BUN/CREATININE RATIO 10 (6-25); CALCIUM 9.5 mg/dL (8.4-10.2); CARBON DIOXIDE 22 mmol/L (22-29); CHLORIDE 105 mmol/L (98-107); CREATININE, SERUM 0.89 mg/dL (0.57-1.11); EST GLOMERULAR FILTRATION RATE > 60 ML/MIN (60-); GLUCOSE 92 mg/dL (74-118); SODIUM 137 mmol/L (136-145)
[2020-02-08 10:37] LABS: BACTERIA,URINE RARE /HPF; EPITHELIAL CELLS,URINE FEW /LPF
[2020-02-08] MEDS ORDERED: PHENAZOPYRIDINE HCL 100 MG TAB PO SCH (13:00)
== END 2020-02-08 10:50 | disposition home or self-care (01) ==
LOC: ER 09:53
DX: N39.0 Urinary tract infection, site not specified (principal); R30.0 Dysuria; M54.5 Low back pain; E78.5 Hyperlipidemia, unspecified
CPT/HCPCS: 36415; 80053; 81001; 85025; 87086; 87186; 99283; J0696

== ENCOUNTER 2024-09-18 13:55 | Emergency (ER) | payer MEDICARE ==
[~2024-09-18] VITALS: Ht 162.6 cm; Wt 77.1 kg
[~2024-09-18 13:55] MED LIST: BACTRIM DS TAB1 EACH PO
[2024-09-18 14:03] VITALS: PULSE 78; RESP 14; TEMP 97.1; O2SAT 99
[2024-09-18] MEDS: DEXAMETHASONE 4 MG TAB PO STA (14:31)
[2024-09-18] MEDS: LIDOCAINE 4% PATCH TP STA (14:31)
[2024-09-18] MEDS: ACETAMINOPHEN 325 MG TAB PO ONE (14:31)
[2024-09-18] MEDS: KETOROLAC TROMETHAMINE 30 MG/ML VIAL IM STA (14:32)
[2024-09-18] MEDS ORDERED: NAPROXEN250 MG PO (14:45)
== END 2024-09-18 16:37 | disposition home or self-care (01) ==
LOC: ER 14:14
DX: M54.50 Low back pain, unspecified (principal); M80.88XS Other osteoporosis with current pathological fracture, vertebra(e), sequela; X50.1XXA Overexertion from prolonged static or awkward postures, initial encounter; E78.5 Hyperlipidemia, unspecified
CPT/HCPCS: 72110; 99283; J1885; J8540

== ENCOUNTER 2024-11-10 19:51 | Inpatient (IN) | payer MEDICARE ==
[~2024-11-10] VITALS: Ht 162.6 cm; Wt 77.1 kg
[~2024-11-10 19:51] MED LIST changes: +NAPROXEN250 MG PO
[2024-11-10 20:07] VITALS: PULSE 86; RESP 16; TEMP 98.5
[2024-11-10] MEDS ORDERED: Morphine 4mg INJECTION 4 MG/ML INJ IV STA (20:23)
[2024-11-10 20:34] LABS: BASOPHILS % 0.3 % (0.0-1.0); EOSINOPHILS % 0.6 % (0.0-6.0); HEMOGLOBIN 15.1 g/dL (12.0-16.0); LYMPHOCYTES # (AUTO) 0.7 (1.0-3.2); LYMPHOCYTES % 10.1 % (18.0-39.1); MEAN CORPUSCULAR HEMOGLOBIN 29.5 pg (28-32); MEAN CORPUSCULAR HGB CONC 32.8 g/dL (31-35); MONOCYTES # (AUTO) 0.3 (0.2-0.8); MONOCYTES % 4.3 % (4.4-11.3); NEUTROPHILS % 84.4 % (38.7-80.0); PLATELET COUNT 305 x10e3/uL (140-360); RED BLOOD COUNT 5.11 x10e6/uL (3.6-5.1); RED CELL DISTRIBUTION WIDTH 14.3 % (11.7-14.4); WHITE BLOOD COUNT 7.14 x10e3/uL (4.8-10.8)
[2024-11-10 20:49] LABS: ALBUMIN 3.6 g/dL (3.5-5.0); ANION GAP 16.4 mmol/L (8-16); BILIRUBIN,TOTAL 0.7 mg/dL (0.2-1.2); CALCIUM 9.2 mg/dL (8.4-10.2); CREATININE, SERUM 0.87 mg/dL (0.57-1.11); TOTAL PROTEIN 7.3 g/dL (6.5-8.1)
[2024-11-10 20:50] LABS: POTASSIUM 3.4 mmol/L (3.5-5.1)
[2024-11-10] MEDS: ONDANSETRON HCL INJ 2MG/ML 2ML 2 MG/ML VIAL IV STA (20:50)
[2024-11-10] MEDS: SODIUM CHLORIDE 0.9% 1000ML 1,000 ML IV STA (20:50)
[2024-11-10 20:55] LABS: TROPONIN I 0.005 ng/mL (0-0.300)
[2024-11-10] MEDS ORDERED: IOPAMIDOL 370 MG/ML 100 ML INFUS..BTL INJ ONE (21:33)
[2024-11-10] MEDS ORDERED: NAPROXEN 250 MG TAB ONE (21:38)
[2024-11-10] MEDS: NAPROXEN 250 MG TAB PO SCH (21:42)
[2024-11-10 22:09] LABS: CLARITY,URINE CLEAR (CLEAR); COLOR,URINE YELLOW (YELLOW); LEUKOCYTE ESTERASE ,URINE NEGATIVE (NEGATIVE); NITRITE,URINE NEGATIVE (NEGATIVE); PH,URINE 5.5 (5 - 7)
[2024-11-10 22:10] LABS: BACTERIA,URINE RARE /HPF; BILIRUBIN,URINE NEGATIVE (NEGATIVE); EPITHELIAL CELLS,URINE RARE /LPF; GLUCOSE, URINE NEGATIVE (NEGATIVE); KETONES,URINE NEGATIVE (NEGATIVE); PROTEIN,URINE DIPSTICK TRACE (NEGATIVE); RBC,URINE 0-5 /HPF (0-5); URINE UROBILINOGEN 0.2 mg/dL (0.2 - 1); WBC,URINE (MAN) 0-5 /HPF (0-5)
[2024-11-10] MEDS: CIPROFLOXACIN 400 MG/D5W 200ML 200 ML IV SCH (22:30)
[2024-11-10] MEDS ORDERED: ONDANSETRON HCL INJ 2MG/ML 2ML 2 MG/ML VIAL IV PRN (23:00)
[2024-11-10 23:45] VITALS: PULSE 85; RESP 18; O2SAT 99
[2024-11-10] MEDS: METRONIDAZOLE 500MG/NS 100ML 100 ML IV SCH (23:46)
[2024-11-11] VITALS (9 sets, daily range): BP systolic 106–151; BP diastolic 67–86; PULSE 82–89; RESP 16–22; TEMP 97.4–98.3; O2SAT 92–100
[2024-11-11] MEDS: SODIUM CHLORIDE 0.9% 1000ML 1,000 ML IV SCH (01:00)
[2024-11-11] MEDS ORDERED: BENZONATATE 100 MG CAP PO PRN (01:45)
[2024-11-11] MEDS ORDERED: POTASSIUM CHLORIDE 20 MEQ TAB CR PO PRN (01:45)
[2024-11-11] MEDS ORDERED: LIDOCAINE 4% PATCH TP PRN (01:45)
[2024-11-11] MEDS ORDERED: ACETAMINOPHEN 325 MG TAB PO PRN (01:45)
[2024-11-11] MEDS ORDERED: DEXTROSE 50% SYRINGE 50 ML IV PRN (01:45)
[2024-11-11] MEDS ORDERED: SIMETHICONE 80 MG CHEW PO PRN (01:45)
[2024-11-11] MEDS ORDERED: DIPHENHYDRAMINE HCL 25 MG CAP PO PRN (01:45)
[2024-11-11] MEDS ORDERED: DOCUSATE SODIUM 100 MG CAP PO PRN (01:45)
[2024-11-11] MEDS ORDERED: MELATONIN 5 MG TABLET PO PRN (01:45)
[2024-11-11] MEDS ORDERED: MIRALAX17 GM PO (02:34)
[2024-11-11] MEDS: DEXTROSE 5%/0.9% SOD CHL 1,000 ML IV SCH (03:46)
[2024-11-11 05:10] LABS: BASOPHILS % 0.2 % (0.0-1.0); HEMATOCRIT 38.5 % (34.2-44.1); HEMOGLOBIN 12.5 g/dL (12.0-16.0); LYMPHOCYTES # (AUTO) 0.3 (1.0-3.2); MEAN CORPUSCULAR HEMOGLOBIN 29.6 pg (28-32); MEAN CORPUSCULAR HGB CONC 32.5 g/dL (31-35); MONOCYTES # (AUTO) 0.2 (0.2-0.8); MONOCYTES % 4.6 % (4.4-11.3); NEUTROPHILS # (AUTO) 3.7 (2.1-6.9); PLATELET COUNT 236 x10e3/uL (140-360); RED BLOOD COUNT 4.23 x10e6/uL (3.6-5.1); RED CELL DISTRIBUTION WIDTH 14.3 % (11.7-14.4); WHITE BLOOD COUNT 4.15 x10e3/uL (4.8-10.8)
[2024-11-11 05:36] LABS: ALBUMIN 2.8 g/dL (3.5-5.0); ALBUMIN/GLOBULIN RATIO 0.8 (0.8-2.0); ANION GAP 13.7 mmol/L (8-16); BILIRUBIN,TOTAL 0.8 mg/dL (0.2-1.2); CALCIUM 8.5 mg/dL (8.4-10.2); CREATININE, SERUM 0.77 mg/dL (0.57-1.11); POTASSIUM 3.7 mmol/L (3.5-5.1); TOTAL PROTEIN 6.1 g/dL (6.5-8.1)
[2024-11-11 06:14] LABS: TROPONIN I 0.007 ng/mL (0-0.300)
[2024-11-11] MEDS: PANTOPRAZOLE SOD 40 MG TABEC PO SCH (07:30)
[2024-11-11] MEDS ORDERED: ACETAMINOPHEN 1000 MG/100 ML IV PRN (12:45)
[2024-11-11 17:01] LABS: TROPONIN I 0.005 ng/mL (0-0.300)
[2024-11-11] MEDS ORDERED: OLANZAPINE 10 MG VIAL ONE (22:37)
[2024-11-11] MEDS: OLANZAPINE 10 MG VIAL IM ONE (22:53)
[2024-11-11] MEDS: WATER STERILE 10 ML VIAL IV ONE (22:53)
[2024-11-12] VITALS (7 sets, daily range): BP systolic 106–135; BP diastolic 67–96; PULSE 84–99; RESP 16–24; TEMP 97.6–98.4; O2SAT 92–100
[2024-11-12] MEDS: HALOPERIDOL LACTATE 5 MG/ML VIAL IV ONE (01:43)
[2024-11-12 05:21] LABS: BASOPHILS # (AUTO) 0.1 (0.0-0.1); BASOPHILS % 0.7 % (0.0-1.0); EOSINOPHILS # (AUTO) 0.1 (0.0-0.4); EOSINOPHILS % 0.4 % (0.0-6.0); HEMATOCRIT 38.1 % (34.2-44.1); LYMPHOCYTES # (AUTO) 0.7 (1.0-3.2); LYMPHOCYTES % 5.3 % (18.0-39.1); MEAN CORPUSCULAR HEMOGLOBIN 29.4 pg (28-32); MEAN CORPUSCULAR HGB CONC 31.5 g/dL (31-35); MEAN CORPUSCULAR VOLUME 93.4 fL (81-99); MONOCYTES # (AUTO) 0.5 (0.2-0.8); MONOCYTES % 3.6 % (4.4-11.3); NEUTROPHILS # (AUTO) 11.7 (2.1-6.9); NEUTROPHILS % 88.9 % (38.7-80.0); PLATELET COUNT 227 x10e3/uL (140-360); RED BLOOD COUNT 4.08 x10e6/uL (3.6-5.1); RED CELL DISTRIBUTION WIDTH 14.6 % (11.7-14.4); WHITE BLOOD COUNT 13.11 x10e3/uL (4.8-10.8)
[2024-11-12 06:08] LABS: ANION GAP 13.6 mmol/L (8-16); CALCIUM 8.4 mg/dL (8.4-10.2); CREATININE, SERUM 0.75 mg/dL (0.57-1.11); POTASSIUM 3.6 mmol/L (3.5-5.1)
[2024-11-12 09:10] LABS: BAND NEUTROPHILS % (MANUAL) 2 %; EOSINOPHILS % (MANUAL) 2 % (0-7); LYMPHOCYTES % (MANUAL) 6 % (19-48); MONOCYTES % (MANUAL) 4 % (3.4-9.0); NEUTROPHILS % (MANUAL) 86 % (40-74); PLATELET ESTIMATE ADEQUATE; PLATELET MORPHOLOGY COMMENT NORMAL; RBC MORPHOLOGY COMMENT NORMAL
[2024-11-12] MEDS ORDERED: DIATRIZOATE MEGL/DIATRIZOA SOD 30 ML BTL PO ONE (12:39)
[2024-11-12] MEDS ORDERED: IOPAMIDOL 370 MG/ML 100 ML INFUS..BTL INJ ONE (12:40)
[2024-11-12] MEDS: SODIUM CHLORIDE 0.9% 1000ML 1,000 ML IV ONE (14:25)
[2024-11-12] MEDS: ENOXAPARIN SOD INJ 40 MG/0.4 ML SYR SC SCH (17:22)
[2024-11-13] VITALS (36 sets, daily range): BP systolic 115–168; BP diastolic 69–108; PULSE 59–99; RESP 22–33; TEMP 97.8–98.6; O2SAT 91–100
[2024-11-13] MEDS: ALBUTEROL/IPRATROPIUM 3 ML NEB NEB PRN (00:54)
[2024-11-13] MEDS: HALOPERIDOL LACTATE 5 MG/ML VIAL IM ONE (01:05)
[2024-11-13 06:27] LABS: BASOPHILS % 0.3 % (0.0-1.0); EOSINOPHILS # (AUTO) 0.1 (0.0-0.4); EOSINOPHILS % 0.5 % (0.0-6.0); HEMATOCRIT 36.2 % (34.2-44.1); HEMOGLOBIN 11.6 g/dL (12.0-16.0); LYMPHOCYTES # (AUTO) 0.6 (1.0-3.2); LYMPHOCYTES % 4.2 % (18.0-39.1); MEAN CORPUSCULAR HEMOGLOBIN 29.7 pg (28-32); MEAN CORPUSCULAR VOLUME 92.6 fL (81-99); MONOCYTES # (AUTO) 0.2 (0.2-0.8); MONOCYTES % 1.6 % (4.4-11.3); NEUTROPHILS # (AUTO) 11.9 (2.1-6.9); NEUTROPHILS % 91.4 % (38.7-80.0); PLATELET COUNT 235 x10e3/uL (140-360); RED BLOOD COUNT 3.91 x10e6/uL (3.6-5.1); RED CELL DISTRIBUTION WIDTH 14.6 % (11.7-14.4); WHITE BLOOD COUNT 13.04 x10e3/uL (4.8-10.8)
[2024-11-13 08:22] LABS: ANION GAP 14.1 mmol/L (8-16); CALCIUM 8.5 mg/dL (8.4-10.2); CREATININE, SERUM 0.64 mg/dL (0.57-1.11)
[2024-11-13 08:23] LABS: POTASSIUM 3.1 mmol/L (3.5-5.1)
[2024-11-13] MEDS: DEXMEDETOMIDINE 400MCG/NS100ML 100 ML IV PRN (12:18)
[2024-11-14] VITALS (58 sets, daily range): BP systolic 111–181; BP diastolic 64–122; PULSE 30–104; RESP 18–45; TEMP 97–98.3; O2SAT 86–100
[2024-11-14] MEDS: HYDRALAZINE HCL 20 MG/ML VIAL IV PRN (02:48)
[2024-11-15] VITALS (30 sets, daily range): BP systolic 96–191; BP diastolic 57–163; PULSE 44–90; RESP 16–35; TEMP 97–97.5; O2SAT 90–100
[2024-11-15] MEDS ORDERED: ALBUTEROL/IPRATROPIUM 3 ML NEB NEB PRN (10:30)
[2024-11-16] VITALS (21 sets, daily range): BP systolic 107–169; BP diastolic 55–144; PULSE 38–56; RESP 13–32; TEMP 97.5–99.8; O2SAT 85–100
== END 2024-11-16 16:15 | disposition hospice, inpatient (51) | DRG 380 ==
LOC: ER 20:08 → ERHOLD 23:10 → MED/SURG 23:40 → ICU 11-12 21:39
PROVIDERS: ADMIT Internal Medicine; ATTEND Internal Medicine
PROC: 5A0945A Assistance with Respiratory Ventilation, 24-96 Consecutive Hours, High Flow/Velocity Cannula (ICD-10-PCS; principal; 2024-11-13)
DX: K25.5 Chronic or unspecified gastric ulcer with perforation (principal); A41.9 Sepsis, unspecified organism; G93.41 Metabolic encephalopathy; K65.8 Other peritonitis; J96.01 Acute respiratory failure with hypoxia; E44.0 Moderate protein-calorie malnutrition; F03.911 Unspecified dementia, unspecified severity, with agitation; F05 Delirium due to known physiological condition; M48.50XA Collapsed vertebra, not elsewhere classified, site unspecified, initial encounter for fracture; G89.29 Other chronic pain; K44.9 Diaphragmatic hernia without obstruction or gangrene; K80.20 Calculus of gallbladder without cholecystitis without obstruction; E78.5 Hyperlipidemia, unspecified; Z68.29 Body mass index [BMI] 29.0-29.9, adult; Z71.3 Dietary counseling and surveillance; M19.91 Primary osteoarthritis, unspecified site; Z51.5 Encounter for palliative care; Z66 Do not resuscitate; Z79.1 Long term (current) use of non-steroidal anti-inflammatories (NSAID); Z79.899 Other long term (current) drug therapy
CPT/HCPCS: 36415; 74177; 80048; 80053; 81001; 82550; 82948; 83690; 84484; 85025; 87040; 93005; 93306; 94640; 94799; 99252; 99284; J0360; J0692; J1630; J1650; J2270; J2405; J2470; J7030; J7042; Q9963; Q9967

== ENCOUNTER 2024-11-16 17:07 | Inpatient (IN) | payer OTHER ==
[~2024-11-16 17:07] MED LIST changes: +MIRALAX17 GM PO
[2024-11-16] MEDS ORDERED: ATROPINE SULFATE 1% OPTH DROPS 15 ML BTL SL PRN (17:30)
[2024-11-16] MEDS ORDERED: BISACODYL 10 MG SUPP PR PRN (17:30)
[2024-11-16] MEDS: HYDROMORPHONE 1MG/1ML INJ IV PRN (17:43)
[2024-11-16] MEDS: LORAZEPAM INJ 2 MG/ML VIAL IV PRN (17:43)
[2024-11-17 08:50] VITALS: BP 131/72; PULSE 105; RESP 18; TEMP 98.3; O2SAT 98
[2024-11-17 11:13] VITALS: BP 131/72; PULSE 87; RESP 17; TEMP 98.9; O2SAT 99
[2024-11-17 15:38] VITALS: BP 125/71; PULSE 84; RESP 16; TEMP 98.9; O2SAT 98
== END 2024-11-18 13:08 | disposition expired | DRG 951 ==
LOC: ICU 17:07 → MED/SURG 11-17 06:03
PROVIDERS: ADMIT Internal Medicine; ATTEND Internal Medicine
DX: Z51.5 Encounter for palliative care (principal); A41.9 Sepsis, unspecified organism; K65.9 Peritonitis, unspecified; R65.20 Severe sepsis without septic shock; K25.5 Chronic or unspecified gastric ulcer with perforation; Z66 Do not resuscitate; R09.02 Hypoxemia; K44.9 Diaphragmatic hernia without obstruction or gangrene
CPT/HCPCS: J1171; J2060